=== PATIENT | male | born 1955 | race Caucasian/White ===

== ENCOUNTER → 2016-03-06 | Outpatient (REF) | payer BC ==
[~2016-03-06] MED LIST: /SUCR1TA OR; ACET65TA OR; BABY81CH OR; BACTROBAN TOP; BENZACLIN TOP; ELOCON TOP; PRAV80TA OR; PRIL40CA OR
[2016-03-06 16:25] LABS: ALBUMIN 3.9 GM/DL (3.2-5.2); ALBUMIN/GLOBULIN RATIO 1.44 (1.00-1.93); ALKALINE PHOSPHATASE 99 U/L (45-117); ALT/SGPT 34 U/L (12-78); ANION GAP 7 MEQ/L (8-16); AST/SGOT 19 U/L (15-37); BILIRUBIN,TOTAL 0.8 MG/DL (0.2-1.0); BLOOD UREA NITROGEN 13 MG/DL (7-18); CALCIUM LEVEL 8.8 MG/DL (8.5-10.1); CARBON DIOXIDE LEVEL 31 MEQ/L (21-32); CHLORIDE LEVEL 107 MEQ/L (98-107); CREATININE FOR GFR 0.76 MG/DL (0.70-1.30); GLOMERULAR FILTRATION RATE > 60.0 (>56); GLUCOSE, FASTING 82 MG/DL (70-105); POTASSIUM SERUM 3.9 MEQ/L (3.5-5.1); SODIUM LEVEL 145 MEQ/L (136-145); TOTAL PROTEIN 6.6 GM/DL (6.4-8.2)
== END | disposition home or self-care (01) ==
LOC: M SFHCPLAZ 13:58
PROVIDERS: ATTEND Nurse Practitioner Family
DX: R73.01 Impaired fasting glucose (principal)

== ENCOUNTER → 2016-07-31 | Outpatient (CLI) | payer BC ==
[2016-07-31 16:49] LABS: ALBUMIN 3.7 GM/DL (3.2-5.2); ALBUMIN/GLOBULIN RATIO 1.37 (1.00-1.93); ALKALINE PHOSPHATASE 81 U/L (45-117); ALT/SGPT 24 U/L (12-78); ANION GAP 6 MEQ/L (8-16); AST/SGOT 14 U/L (15-37); BILIRUBIN,TOTAL 0.9 MG/DL (0.2-1.0); BLOOD UREA NITROGEN 12 MG/DL (7-18); CARBON DIOXIDE LEVEL 29 MEQ/L (21-32); CHLORIDE LEVEL 106 MEQ/L (98-107); CHOLESTEROL LEVEL 136 MG/DL (<200); CREATININE FOR GFR 0.76 MG/DL (0.70-1.30); FREE T4 1.07 NG/DL (0.76-1.46); GLOMERULAR FILTRATION RATE > 60.0 (>49); GLUCOSE, FASTING 76 MG/DL (80-110); POTASSIUM SERUM 3.7 MEQ/L (3.5-5.1); SODIUM LEVEL 141 MEQ/L (136-145); TOTAL PROTEIN 6.4 GM/DL (6.4-8.2); TRIGLYCERIDES LEVEL 83 MG/DL (<150)
== END ==
LOC: M LAB 15:36
PROVIDERS: ATTEND Nurse Practitioner Family
DX: R73.01 Impaired fasting glucose (principal); E78.5 Hyperlipidemia, unspecified

== ENCOUNTER → 2017-02-25 | Outpatient (REF) | payer BC ==
[2017-02-25 19:04] LABS: ALBUMIN 3.8 GM/DL (3.2-5.2); ALBUMIN/GLOBULIN RATIO 1.23 (1.00-1.93); ALKALINE PHOSPHATASE 88 U/L (45-117); ALT/SGPT 19 U/L (12-78); ANION GAP 7 MEQ/L (8-16); AST/SGOT 14 U/L (7-37); BILIRUBIN,TOTAL 0.5 MG/DL (0.2-1.0); BLOOD UREA NITROGEN 14 MG/DL (7-18); CALCIUM LEVEL 8.7 MG/DL (8.8-10.2); CARBON DIOXIDE LEVEL 29 MEQ/L (21-32); CHLORIDE LEVEL 106 MEQ/L (98-107); CHOLESTEROL LEVEL 241 MG/DL (<200); CHOLESTEROL RISK RATIO 5.878 (<5); CREATININE FOR GFR 0.71 MG/DL (0.70-1.30); FREE T4 1.03 NG/DL (0.76-1.46); GLOMERULAR FILTRATION RATE > 60.0 (>49); GLUCOSE, FASTING 80 MG/DL (80-110); HDL CHOLESTEROL 41 MG/DL (>40); LDL CHOLESTEROL 171.2 MG/DL (<100); NON-HDL-C 200 MG/DL; SODIUM LEVEL 142 MEQ/L (136-145); THYROID STIMULATING HORMONE 0.467 uIU/ML (0.358-3.740); TOTAL PROTEIN 6.9 GM/DL (6.4-8.2); TRIGLYCERIDES LEVEL 144 MG/DL (<150)
[2017-02-25 19:29] LABS: ESTIMATED AVERAGE GLUCOSE 134 MG/DL (60-110); HEMOGLOBIN A1c 6.3 %
== END ==
LOC: M SFHCPLAZ 15:50
DX: E78.5 Hyperlipidemia, unspecified (principal); R73.01 Impaired fasting glucose
CPT/HCPCS: 84443

== ENCOUNTER → 2017-08-16 | Outpatient (CLI) | payer BC | LOC: M RAD 10:50 | DX: L02.214 Cutaneous abscess of groin (principal) | CPT/HCPCS: 76870 ==

== ENCOUNTER → 2017-08-28 | Outpatient (CLI) | payer BC ==
[2017-08-28 12:52] LABS: BASO # 0.1 10^3/uL (0.0-0.2); BASO % 0.5 % (0.0-1.0); EOS # 0.3 10^3/uL (0.0-0.50); EOS % 2.3 % (0.0-3.0); HEMATOCRIT 46.1 % (42.0-52.0); HEMOGLOBIN 15.1 g/dl (13.5-17.5); IMMATURE GRANULOCYTE % 0.7 % (0-3.0); LYMPH # 1.8 10^3/uL (1.5-4.5); LYMPH % 12.6 % (24.0-44.0); MEAN CORPUSCULAR HEMOGLOBIN 28.6 pg (27.0-33.0); MEAN CORPUSCULAR HGB CONC 32.8 g/dl (32.0-36.5); MEAN CORPUSCULAR VOLUME 87.3 fl (80.0-96.0); MONO # 1.5 10^3/uL (0.0-0.8); MONO % 10.6 % (0.0-5.0); NEUTROPHILS # 10.2 10^3/uL (1.8-7.7); NEUTROPHILS % 73.3 % (36.0-66.0); PLATELET COUNT, AUTOMATED 242 10^3/uL (150-450); RED BLOOD COUNT 5.28 10^6/uL (4.30-6.10); RED CELL DISTRIBUTION WIDTH 12.5 % (11.5-14.5); WHITE BLOOD COUNT 13.9 10^3/uL (4.0-10.0)
== END ==
LOC: M WUC 10:04
DX: L02.214 Cutaneous abscess of groin (principal)
CPT/HCPCS: 85025

== ENCOUNTER → 2017-09-16 | Outpatient (REF) | payer BC ==
[2017-09-16 13:54] LABS: ESTIMATED AVERAGE GLUCOSE 146 MG/DL (60-110); HEMOGLOBIN A1c 6.7 %
[2017-09-16 14:25] LABS: ALBUMIN 3.8 GM/DL (3.2-5.2); ALBUMIN/GLOBULIN RATIO 1.23 (1.00-1.93); ALKALINE PHOSPHATASE 98 U/L (45-117); ALT/SGPT 31 U/L (12-78); ANION GAP 6 MEQ/L (8-16); AST/SGOT 15 U/L (7-37); BILIRUBIN,TOTAL 0.4 MG/DL (0.2-1.0); BLOOD UREA NITROGEN 13 MG/DL (7-18); CALCIUM LEVEL 8.9 MG/DL (8.8-10.2); CARBON DIOXIDE LEVEL 30 MEQ/L (21-32); CHLORIDE LEVEL 108 MEQ/L (98-107); CHOLESTEROL LEVEL 146 MG/DL (<200); CHOLESTEROL RISK RATIO 3.395 (<5); CREATININE FOR GFR 0.78 MG/DL (0.70-1.30); GLOMERULAR FILTRATION RATE > 60.0 (>49); GLUCOSE, FASTING 97 MG/DL (70-100); HDL CHOLESTEROL 43 MG/DL (>40); LDL CHOLESTEROL 91.2 MG/DL (<100); NON-HDL-C 103 MG/DL; POTASSIUM SERUM 4.2 MEQ/L (3.5-5.1); SODIUM LEVEL 144 MEQ/L (136-145); TOTAL PROTEIN 6.9 GM/DL (6.4-8.2); TRIGLYCERIDES LEVEL 59 MG/DL (<150)
== END ==
LOC: M SFHCPLAZ 11:09
DX: E78.5 Hyperlipidemia, unspecified (principal); R73.01 Impaired fasting glucose
CPT/HCPCS: 80053

== ENCOUNTER → 2017-11-04 | Outpatient (REF) | payer BC | LOC: M SMT 17:23 | DX: N49.2 Inflammatory disorders of scrotum (principal) | CPT/HCPCS: 87186 ==

== ENCOUNTER → 2018-04-20 | Outpatient (REF) | payer OTHER | LOC: M SFHCPLAZ 15:56 | PROVIDERS: ATTEND Nurse Practitioner Family | DX: Z53.9 Procedure and treatment not carried out, unspecified reason (principal); R73.01 Impaired fasting glucose; E78.5 Hyperlipidemia, unspecified ==

== ENCOUNTER → 2018-04-21 | Outpatient (REF) | payer OTHER ==
[2018-04-21 18:54] LABS: HEMOGLOBIN A1c 6.7 %
[2018-04-21 19:11] LABS: MALB URINE SIEMENS 25.9 MG/L; MAU/CREAT RATIO 16.9 MCG/MG (0.0-30.0)
[2018-04-21 19:15] LABS: ALBUMIN 3.8 GM/DL (3.2-5.2); ALT/SGPT 26 U/L (12-78); BILIRUBIN,TOTAL 0.6 MG/DL (0.2-1.0); BLOOD UREA NITROGEN 14 MG/DL (7-18); CALCIUM LEVEL 8.8 MG/DL (8.8-10.2); CARBON DIOXIDE LEVEL 28 MEQ/L (21-32); CHLORIDE LEVEL 104 MEQ/L (98-107); CREATININE FOR GFR 0.82 MG/DL (0.70-1.30); GLOMERULAR FILTRATION RATE > 60.0 (>49); GLUCOSE, FASTING 82 MG/DL (70-100); POTASSIUM SERUM 4.1 MEQ/L (3.5-5.1); SODIUM LEVEL 140 MEQ/L (136-145); TOTAL PROTEIN 6.9 GM/DL (6.4-8.2)
== END ==
LOC: M SFHCPLAZ 15:20
PROVIDERS: ATTEND Nurse Practitioner Family
DX: E11.69 Type 2 diabetes mellitus with other specified complication (principal); E78.5 Hyperlipidemia, unspecified

== ENCOUNTER → 2018-07-28 | Outpatient (REF) | payer OTHER ==
[~2018-07-28] MED LIST changes: -/SUCR1TA OR; +SUCR1TAB56 OR
[2018-07-28 18:09] LABS: ALBUMIN 3.4 GM/DL (3.2-5.2); ALT/SGPT 28 U/L (12-78); BILIRUBIN,TOTAL 0.3 MG/DL (0.2-1.0); BLOOD UREA NITROGEN 13 MG/DL (7-18); CALCIUM LEVEL 8.6 MG/DL (8.8-10.2); CARBON DIOXIDE LEVEL 29 MEQ/L (21-32); CHLORIDE LEVEL 108 MEQ/L (98-107); CHOLESTEROL LEVEL 141 MG/DL (<200); CHOLESTEROL RISK RATIO 3.525 (<5); CREATININE FOR GFR 0.77 MG/DL (0.70-1.30); GLOMERULAR FILTRATION RATE > 60.0 (>49); GLUCOSE, FASTING 80 MG/DL (70-100); HDL CHOLESTEROL 40 MG/DL (>40); LDL CHOLESTEROL 83 MG/DL (<100); NON-HDL-C 101 MG/DL; POTASSIUM SERUM 4.2 MEQ/L (3.5-5.1); SODIUM LEVEL 144 MEQ/L (136-145); TOTAL PROTEIN 6.7 GM/DL (6.4-8.2); TRIGLYCERIDES LEVEL 92 MG/DL (<150)
[2018-07-28 18:27] LABS: HEMOGLOBIN A1c 6.9 %
== END ==
LOC: M SFHCPLAZ 15:05
PROVIDERS: ATTEND Nurse Practitioner Family
DX: E11.69 Type 2 diabetes mellitus with other specified complication (principal); E78.5 Hyperlipidemia, unspecified

== ENCOUNTER → 2018-08-24 | Outpatient (CLI) | payer OTHER ==
--- NOTE | 2018-08-24 17:04 | REP ---
Clinical: Lung screening. History smoking. Comparison: None Technique: Axial low-dose noncontrast images from the thoracic inlet to the upper abdomen using lung screening technique. Findings: Left hilar mass extending into the left upper lobe measures 5 cm with spiculated margins and is consistent with malignancy. Impression: Left hilar mass is consistent with malignancy and pulmonary consultation is required. Electronically Signed by Prasanna Armendariz MD 08/24/2018 04:56 P
== END ==
LOC: M RAD 16:11
PROVIDERS: ATTEND Nurse Practitioner Family
DX: F17.210 Nicotine dependence, cigarettes, uncomplicated (principal)

== ENCOUNTER 2018-10-05 07:25 | Day surgery (SDC) | payer OTHER ==
[~2018-10-05] VITALS: Ht 170.2 cm; Wt 124.3 kg
[~2018-10-05 07:25] MED LIST changes: +ASPI81TA85 PO; +ATOR40TA75 PO; +LISI10TA4 PO; +LR 1,000 ML IV ONE; +METF500T13 PO; +MULTCAP PO; +NEXI20CA PO; +OMEGCAP9 PO; +PROAAER10 INH; +STRI1AER2 IN
[2018-10-05] MEDS ORDERED: ROCURONIUM BROMIDE 50 MG/5 ML VIAL As Ordered ONE (08:32)
[2018-10-05] MEDS ORDERED: PROPOFOL 200 MG/20 ML VIAL As Ordered ONE (08:32)
[2018-10-05] MEDS ORDERED: fentaNYL 100 MCG/2 ML INJECTION (J3010) As Ordered ONE (08:33)
[2018-10-05] MEDS ORDERED: LIDOCAINE 2% INJ 100 MG/5 ML SDV (FOR ANES.) As Ordered ONE (08:33)
[2018-10-05] MEDS ORDERED: dexameTHASONE 4 MG/ML 1ML VIAL (J1100) As Ordered ONE (08:37)
[2018-10-05] MEDS ORDERED: LIDOCAINE 1% SDV INJ 30 ML VIAL As Ordered ONE (08:37)
[2018-10-05] MEDS ORDERED: CETACAINE SPRAY 5GM As Ordered ONE (08:37)
[2018-10-05] MEDS ORDERED: ONDANSETRON 4MG/2ML VIAL (J2405) As Ordered ONE (08:37)
[2018-10-05] MEDS ORDERED: THROMBIN SOLN 5,000 UNITS VIAL As Ordered ONE (08:37)
[2018-10-05] MEDS ORDERED: EPINEPHrine INJ 1 MG/ML 1ML AMP As Ordered ONE (08:38)
[2018-10-05] MEDS ORDERED: LIDOCAINE VISCOUS 2% SOLN 15ML UDC As Ordered ONE (08:38)
[2018-10-05] MEDS ORDERED: EPINEPHrine 1MG/10ML SYRINGE 1.5IN As Ordered ONE (08:43)
[2018-10-05] MEDS ORDERED: ALBUTEROL SULFATE 2.5 MG/0.5 ML INH NEB SOLN As Ordered ONE (10:14)
[2018-10-05] MEDS ORDERED: PROMETHAZINE INJ 25 MG/ML VIAL (J2550) IV PRN (10:15)
[2018-10-05] MEDS ORDERED: LR 1,000 ML IV SCH (10:15)
[2018-10-05] MEDS ORDERED: oxyCODONE 5MG TAB PO PRN (10:15)
[2018-10-05] MEDS ORDERED: METOCLOPRAMIDE INJ 10MG/2ML VIAL (J2765) IV PRN (10:15)
[2018-10-05] MEDS ORDERED: fentaNYL 100 MCG/2 ML INJECTION (J3010) IV PRN (10:15)
--- NOTE | 2018-10-05 10:26 | RO ---
DATE OF PROCEDURE: 10/05/2018 PREOPERATIVE DIAGNOSIS: Abnormal chest CT, left upper lobe lesion. POSTOPERATIVE DIAGNOSIS: Abnormal chest CT, left upper lobe lesion. PROCEDURE: Bronchoscopy with endobronchial ultrasound. SURGEON: Dr. Eddie Mcdaniels PICKLE SORTER: None. ANESTHESIA: General. SPECIMENS OBTAINED: 1. Transbronchial biopsies left upper lobe. 2. Transbronchial Cytobrush. 3. Fine needle aspiration (FNA) of the left upper lobe, Percepta brushes were also obtained. DESCRIPTION OF PROCEDURE: After informed consent was reviewed with the patient in the preoperative area, he was brought back to OR number one. He was intubated with an 8.5 endotracheal tube and after adequate anesthesia the case was handed over to dc. A time out was performed with two patient identifiers, identifying correct site and correct procedure. The airway was then anesthetized with Cetacaine spray and the 1T-190 bronchoscope was inserted into the trachea. The trachea was midline. The joanna was sharp. Right and left mainstem bronchi were normal. RB 1-10 was without endobronchial lesions, but minimal pitting. The left mainstem was normal. LB 1 was normal. The posterior segment of the left upper lobe was narrowed. The anterior segment was patent. The left upper lobe had a normal anatomic variation similar to that of a usual right upper lobe. The lingula superior and inferior segments were normal without endobronchial lesions, but minimal banding. LB 6-10 were normal without endobronchial lesions, minimal banding. After inspection, the bronchoscope was retracted. Percepta brushes were obtained from the right mainstem on the anterior and posterior surfaces of the airway. There was no significant bleeding from the Percepta brushes. The bronchoscope was then inserted into the left upper lobe and lesion identified under fluoroscopy. The airways of the lingula and the left upper lobe were viewed. The lesion appears to be between the lingula and the left upper lobe. The posterior segment, however, of the left upper lobe was the most accurate under fluoroscopy. Transbronchial forceps biopsies were then taken with some minimal amount of hemorrhage and hemorrhage resolved on its own without administration of epinephrine. Then, performed cytology brushes of the left upper lobe. This was followed by an FNA of the spur between the anterior and posterior segment. Prior to the FNA, endobronchial ultrasound was attempted of the area, however, the endobronchial ultrasound was not able to be advanced far enough into the left upper lobe for accurate vision. There was no significant adenopathy proximal to that. The endobronchial ultrasound was removed and the 1T-190 scope was reinserted. Hemostasis was assured. The bronchoscope was then removed and the patient was extubated. The patient is currently in recovery. Chest x-ray is pending. [facility]
[2018-10-05] MEDS ORDERED: ALBUTEROL SULFATE 2.5 MG/0.5 ML INH NEB SOLN INH ONE (10:30)
[2018-10-05 11:00] VITALS: BP 135/83
--- NOTE | 2018-10-05 11:09 | REP ---
REASON: Postoperative. COMPARISON: 02/13/2015 the latest prior. There is a mass density in the left perihilar region seen better on chest CT obtained 08/24/2018 which was reviewed. With this exception the lung butler are clear and the pleural angles are sharp. The heart is not enlarged. The osseous structures are within normal limits. IMPRESSION: Left perihilar mass as described above. Electronically Signed by Logan Martinez DO 10/05/2018 12:32 P
== END 2018-10-05 11:28 | disposition home or self-care (01) ==
LOC: M SDC 07:25
PROVIDERS: ATTEND Internal Medicine Pulmonary Disease
DX: C34.12 Malignant neoplasm of upper lobe, left bronchus or lung (principal); J44.9 Chronic obstructive pulmonary disease, unspecified; I10 Essential (primary) hypertension; R73.03 Prediabetes; K21.9 Gastro-esophageal reflux disease without esophagitis; G47.33 Obstructive sleep apnea (adult) (pediatric); E78.00 Pure hypercholesterolemia, unspecified; K86.1 Other chronic pancreatitis; F17.210 Nicotine dependence, cigarettes, uncomplicated; Z79.899 Other long term (current) drug therapy; Z79.84 Long term (current) use of oral hypoglycemic drugs; N40.0 Benign prostatic hyperplasia without lower urinary tract symptoms
CPT/HCPCS: 31623; 31628; 31629; 71045; 76000; 88104; 88173; 88305; 88313; 88341; 88342; J1100; J2405; J3010

== ENCOUNTER 2018-10-10 00:24 | Emergency (ER) | payer OTHER ==
[~2018-10-10] VITALS: Ht 170.2 cm; Wt 124.5 kg
[~2018-10-10 00:24] MED LIST changes: -LR 1,000 ML IV ONE
[2018-10-10 01:36] LABS: BASO # 0.1 10^3/uL (0.0-0.2); BASO % 0.7 % (0.0-1.0); EOS # 0.3 10^3/uL (0.0-0.50); EOS % 2.9 % (0.0-3.0); HEMATOCRIT 46.4 % (42.0-52.0); HEMOGLOBIN 15.7 g/dl (13.5-17.5); LYMPH # 1.5 10^3/uL (1.5-4.5); LYMPH % 13.4 % (24.0-44.0); MEAN CORPUSCULAR HEMOGLOBIN 28.9 pg (27.0-33.0); MEAN CORPUSCULAR HGB CONC 33.8 g/dl (32.0-36.5); MEAN CORPUSCULAR VOLUME 85.5 fl (80.0-96.0); MONO # 1.2 10^3/uL (0.0-0.8); NEUTROPHILS # 7.8 10^3/uL (1.8-7.7); NEUTROPHILS % 71.4 % (36.0-66.0); PLATELET COUNT, AUTOMATED 235 10^3/uL (150-450); RED BLOOD COUNT 5.43 10^6/uL (4.30-6.10); WHITE BLOOD COUNT 10.9 10^3/uL (4.0-10.0)
[2018-10-10 02:03] LABS: ALBUMIN 3.8 GM/DL (3.2-5.2); ALT/SGPT 24 U/L (12-78); BILIRUBIN,DIRECT 0.3 MG/DL (0.0-0.2); BLOOD UREA NITROGEN 9 MG/DL (7-18); CALCIUM LEVEL 9.4 MG/DL (8.8-10.2); CARBON DIOXIDE LEVEL 29 MEQ/L (21-32); CHLORIDE LEVEL 105 MEQ/L (98-107); CREATININE FOR GFR 0.87 MG/DL (0.70-1.30); GLOMERULAR FILTRATION RATE > 60.0 (>49); GLUCOSE, FASTING 106 MG/DL (70-100); LIPASE 581 U/L (73-393); POTASSIUM SERUM 3.3 MEQ/L (3.5-5.1); SODIUM LEVEL 142 MEQ/L (136-145); TOTAL PROTEIN 7.1 GM/DL (6.4-8.2)
[2018-10-10] MEDS ORDERED: NS 1,000 ML IV ONE (03:30)
[2018-10-10] MEDS ORDERED: ONDANSETRON 4MG/2ML VIAL (J2405) IV ONE (03:30)
[2018-10-10] MEDS ORDERED: MORPHINE 4 MG/ML 1ML VIAL/SYRINGE (J2270) IV PRN (03:30)
[2018-10-10] MEDS ORDERED: ISOVUE-370 76% 100ML VIAL (Q9967) As Ordered ONE (03:38)
--- NOTE | 2018-10-10 06:22 | REPVR ---
EXAM: CT Abdomen and Pelvis With Contrast EXAM DATE/TIME: 10/10/2018 3:57 AM CLINICAL HISTORY: 63 years old, male; Abdominal pain; Epigastric; Additional info: Epigastric pain, HX of pancreatitis TECHNIQUE: Imaging protocol: Axial computed tomography images of the abdomen and pelvis with intravenous contrast. Coronal and sagittal reformatted images were created and reviewed. Radiation optimization: All CT scans at this facility use at least one of these dose optimization techniques: automated exposure control; mA and/or kV adjustment per patient size (includes targeted exams where dose is matched to clinical indication); or iterative reconstruction. Contrast material: ISOVUE 370;Contrast volume: 100 ml;Contrast route: IV; COMPARISON: CT ABD PELVIS WITH CONTRAST 10/23/2013 2:56 AM FINDINGS: Lungs: Mild bibasilar atelectasis. No consolidation. Right lower lobe calcified granuloma. Heart: Cardiac size is normal. No pericardial or pleural effusions. Liver: Diffuse fatty infiltration of the liver. There are few punctate calcified granulomas which appear unchanged. Gallbladder and bile ducts: No calcified gallstones. Mild prominence of the extrahepatic bile ducts with the common bile duct measuring up to 1 cm. No calcified intraductal stones. Pancreas: There is homogeneous enhancement of the pancreas. No pancreatic duct dilatation. Subtle perigastric hazy density adjacent to the distal stomach which extends inferiorly, adjacent to the pancreatic neck and into the root of the mesentery. Spleen: The spleen is unremarkable in appearance. Adrenals: The adrenal glands are unremarkable. No mass. Kidneys and ureters: Symmetric nephrograms. No hydronephrosis. Stomach and bowel: The stomach is relatively decompressed. There is no evidence of bowel obstruction. Colonic diverticulosis. No acute diverticulitis. Appendix: Normal appendix. Intraperitoneal space: No free fluid. No free air. Vasculature: Atherosclerosis. No abdominal aortic aneurysm. Lymph nodes: No significant adenopathy. Bladder: Partially distended urinary bladder. Reproductive: Stable mild enlargement of the prostate gland. Bones/joints: Degenerative change within the lower thoracic and lumbar spine. No acute fracture. Soft tissues: Small fat-containing paraumbilical hernia. Small fat-containing inguinal hernias. IMPRESSION: 1. Subtle perigastric hazy density adjacent to the distal stomach which extends inferiorly, adjacent to the pancreatic neck and into the root of the mesentery. Differential considerations include gastritis/peptic ulcer disease or mild pancreatitis. Recommend correlation with pancreatic enzymes. 2. Mild prominence of the extrahepatic bile ducts with the common bile duct measuring up to 1 cm. No calcified gallstones or intraductal stones. Consider ultrasound for further evaluation if clinically warranted. 3. Colonic diverticulosis. No acute diverticulitis. 4. Diffuse fatty infiltration of the liver. 5. Additional non-emergent findings, as discussed above. Findings were discussed with TISHA QUINTEROS at 10/10/2018 6:06 AM EDT. Electronically signed by: Prasanna Medrano On 10/10/2018 06:22:34 AM
[2018-10-10] MEDS ORDERED: POTASSIUM CHLORIDE 10 MEQ SR TABLET PO ONE (08:00)
--- NOTE | 2018-10-10 08:18 | REPVR ---
EXAM: US Abdomen Limited, Right Upper Quadrant EXAM DATE/TIME: 10/10/2018 7:35 AM CLINICAL HISTORY: 63 years old, male; Abdominal pain; Additional info: Epigastric pain, pancreatitis, biliary dilatation on CT TECHNIQUE: Imaging protocol: Real-time ultrasound of the abdomen with image documentation. Examination was focused on the right upper quadrant. COMPARISON: CT ABD/PEL W/IV CONTRAST ONLY 10/10/2018 3:47 AM FINDINGS: Liver: The liver is diffusely echogenic, consistent with fatty infiltration. No intrahepatic biliary duct dilatation. Gallbladder: The gallbladder is unremarkable. No gallstones or gallbladder wall thickening. Common bile duct: There is mild prominence of the extrahepatic bile ducts with the common bile duct measuring 9 mm. No intraductal stones are visualized. Pancreas: The pancreas is partially obscured by overlying bowel gas. The visualized portions of the pancreatic head and body are unremarkable. Right kidney: The right kidney measures 11.5 cm in length. No hydronephrosis. Inferior vena cava: The visualized IVC is unremarkable Intraperitoneal space: No evidence of free fluid. IMPRESSION: 1. Echogenic liver, consistent with diffuse fatty infiltration. 2. No evidence of gallstones. 3. Mild prominence of the extrahepatic bile ducts, as noted on CT. The common bile duct measures 9 mm. No intraductal stones are visualized. Electronically signed by: Prasanna Medrano On 10/10/2018 08:17:32 AM
[2018-10-10] MEDS ORDERED: ZOFR4TAB16 PO (08:40)
[2018-10-10 09:00] VITALS: BP 141/69
--- NOTE | 2018-10-10 16:41 | ED PDOC ---
Post-Departure Follow-Up dr bob and dr wray faxed formal report of ct abd/p for fu Brittani Stevenson MD Oct 10, 2018 16:40
--- NOTE | 2018-10-10 16:47 | ED PDOC ---
Post-Departure Follow-Up dr bob and dr wray faxed formal report of us for fu Brittani Stevenson MD Oct 10, 2018 16:47
== END 2018-10-10 09:02 | disposition home or self-care (01) ==
LOC: M ED 00:24
DX: R10.13 Epigastric pain (principal); E78.5 Hyperlipidemia, unspecified; F17.210 Nicotine dependence, cigarettes, uncomplicated; I10 Essential (primary) hypertension; K21.9 Gastro-esophageal reflux disease without esophagitis; K40.90 Unilateral inguinal hernia, without obstruction or gangrene, not specified as recurrent; K42.9 Umbilical hernia without obstruction or gangrene; K57.31 Diverticulosis of large intestine without perforation or abscess with bleeding; K76.0 Fatty (change of) liver, not elsewhere classified; M51.35 Other intervertebral disc degeneration, thoracolumbar region; Z79.51 Long term (current) use of inhaled steroids; Z79.82 Long term (current) use of aspirin; Z79.84 Long term (current) use of oral hypoglycemic drugs; Z79.899 Other long term (current) drug therapy; Z91.018 Allergy to other foods; Z91.048 Other nonmedicinal substance allergy status
CPT/HCPCS: 74177; 76705; 80048; 80076; 81001; 83690; 85025; 96361; 96374; 96375; 99284; J2270; J2405; Q9967

== ENCOUNTER → 2018-10-13 | Outpatient (REF) | payer OTHER ==
[~2018-10-13] MED LIST changes: +CLAR10CA3 PO; +FULP6INJ SC; +OLAN10TA2 PO; +ONDA4TAB6 PO; +ONDA8TAB10 PO; +PERC5TAB12 PO; +PROC10TA4 PO; +SILV40CR EXT; +ZOFR4TAB16 PO
[2018-10-13 16:28] LABS: BASO # 0.1 10^3/uL (0.0-0.2); BASO % 0.7 % (0.0-1.0); EOS # 0.3 10^3/uL (0.0-0.50); EOS % 3.3 % (0.0-3.0); HEMATOCRIT 48.2 % (42.0-52.0); HEMOGLOBIN 16.4 g/dl (13.5-17.5); LYMPH # 1.8 10^3/uL (1.5-4.5); LYMPH % 19.7 % (24.0-44.0); MEAN CORPUSCULAR HEMOGLOBIN 29.2 pg (27.0-33.0); MEAN CORPUSCULAR VOLUME 85.8 fl (80.0-96.0); MONO # 1.1 10^3/uL (0.0-0.8); NEUTROPHILS # 5.9 10^3/uL (1.8-7.7); NEUTROPHILS % 63.3 % (36.0-66.0); PLATELET COUNT, AUTOMATED 263 10^3/uL (150-450); RED BLOOD COUNT 5.62 10^6/uL (4.30-6.10); WHITE BLOOD COUNT 9.4 10^3/uL (4.0-10.0)
[2018-10-13 16:44] LABS: BLOOD UREA NITROGEN 10 MG/DL (7-18); CALCIUM LEVEL 9.5 MG/DL (8.8-10.2); CARBON DIOXIDE LEVEL 26 MEQ/L (21-32); CHLORIDE LEVEL 106 MEQ/L (98-107); CREATININE FOR GFR 0.79 MG/DL (0.70-1.30); GLOMERULAR FILTRATION RATE > 60.0 (>49); GLUCOSE, FASTING 94 MG/DL (70-100); LIPASE 222 U/L (73-393); POTASSIUM SERUM 3.6 MEQ/L (3.5-5.1); SODIUM LEVEL 142 MEQ/L (136-145)
== END ==
LOC: M SFHCPLAZ 14:11
PROVIDERS: ATTEND Family Medicine
DX: D72.829 Elevated white blood cell count, unspecified (principal); K85.90 Acute pancreatitis without necrosis or infection, unspecified; E87.6 Hypokalemia

== ENCOUNTER 2018-10-18 00:13 | Emergency (ER) | payer OTHER ==
[~2018-10-18] VITALS: Ht 170.2 cm; Wt 120.9 kg
[~2018-10-18 00:13] MED LIST changes: -CLAR10CA3 PO; -FULP6INJ SC; -OLAN10TA2 PO; -ONDA4TAB6 PO; -ONDA8TAB10 PO; -PERC5TAB12 PO; -PROC10TA4 PO; -SILV40CR EXT
[2018-10-18 00:41] LABS: BASO # 0.1 10^3/uL (0.0-0.2); BASO % 0.8 % (0.0-1.0); EOS # 0.3 10^3/uL (0.0-0.50); EOS % 2.9 % (0.0-3.0); HEMOGLOBIN 16.6 g/dl (13.5-17.5); LYMPH # 1.7 10^3/uL (1.5-4.5); LYMPH % 15.6 % (24.0-44.0); MEAN CORPUSCULAR HGB CONC 33.9 g/dl (32.0-36.5); MEAN CORPUSCULAR VOLUME 85.7 fl (80.0-96.0); MONO # 1.1 10^3/uL (0.0-0.8); MONO % 10.1 % (0.0-5.0); NEUTROPHILS # 7.6 10^3/uL (1.8-7.7); PLATELET COUNT, AUTOMATED 268 10^3/uL (150-450); RED BLOOD COUNT 5.72 10^6/uL (4.30-6.10); WHITE BLOOD COUNT 10.9 10^3/uL (4.0-10.0)
[2018-10-18 00:57] LABS: ALBUMIN 3.8 GM/DL (3.2-5.2); ALT/SGPT 24 U/L (12-78); BILIRUBIN,DIRECT 0.2 MG/DL (0.0-0.2); BILIRUBIN,TOTAL 0.6 MG/DL (0.2-1.0); BLOOD UREA NITROGEN 11 MG/DL (7-18); CALCIUM LEVEL 9.3 MG/DL (8.8-10.2); CARBON DIOXIDE LEVEL 29 MEQ/L (21-32); CHLORIDE LEVEL 108 MEQ/L (98-107); CREATININE FOR GFR 0.82 MG/DL (0.70-1.30); GLOMERULAR FILTRATION RATE > 60.0 (>49); GLUCOSE, FASTING 120 MG/DL (70-100); LIPASE 434 U/L (73-393); POTASSIUM SERUM 3.6 MEQ/L (3.5-5.1); SODIUM LEVEL 142 MEQ/L (136-145)
[2018-10-18] MEDS ORDERED: ONDANSETRON 4MG/2ML VIAL (J2405) IV ONE (03:15)
[2018-10-18] MEDS ORDERED: MORPHINE 4 MG/ML 1ML VIAL/SYRINGE (J2270) IV PRN (03:15)
[2018-10-18] MEDS ORDERED: NS 1,000 ML IV ONE (03:15)
[2018-10-18] MEDS ORDERED: ONDA4TAB6 PO (05:35)
[2018-10-18] MEDS ORDERED: PERC5TAB12 PO (05:35)
[2018-10-18] MEDS ORDERED: OXYCODONE/APAP 5MG/325MG(BULK FOR ED) 1 TABLET PO ONE (05:45)
[2018-10-18 05:49] VITALS: BP 126/60
== END 2018-10-18 05:50 | disposition home or self-care (01) ==
LOC: M ED 00:13
DX: K85.00 Idiopathic acute pancreatitis without necrosis or infection (principal); I10 Essential (primary) hypertension; E78.5 Hyperlipidemia, unspecified; K21.9 Gastro-esophageal reflux disease without esophagitis; F17.210 Nicotine dependence, cigarettes, uncomplicated; Z91.018 Allergy to other foods; Z91.048 Other nonmedicinal substance allergy status; Z79.899 Other long term (current) drug therapy; Z79.84 Long term (current) use of oral hypoglycemic drugs; Z79.82 Long term (current) use of aspirin
CPT/HCPCS: 80048; 80076; 83690; 85025; 96361; 96374; 96375; 99284; J2270; J2405

== ENCOUNTER → 2018-10-25 | Outpatient (CLI) | payer OTHER ==
[~2018-10-25] MED LIST changes: +FULP6INJ SC; +OLAN10TA2 PO; +ONDA4TAB6 PO; +ONDA8TAB7 PO; +PERC5TAB12 PO; +PROC10TA4 PO
--- NOTE | 2018-10-26 08:55 | REP ---
PET/CT: History: Staging small cell lung carcinoma. Comparisons: Low-dose chest CT August 24, 2018. Comparison CT abdomen and pelvis October 10, 2018. TECHNIQUE: 52 minutes following the intravenous injection of a 8.41 mCi dose of F-18 FDG, three-dimensional PET scintigraphy is acquired from the skull base to the proximal thighs. Triplanar noncontrast CT scanning is acquired through the same anatomic range for attenuation correction, and image registration with scan parameters optimized to minimize radiation exposure to the patient. PET scintigraphy and CT datasets were fused and displayed on a workstation with multiplanar and projection display capability. PET/CT Findings: The left upper lobe perihilar mass lesion is quite hypermetabolic. Maximum standard uptake value is 16.73. Its dimensions are 4.9 x 4.6 x 4.7 cm. No other abnormal pulmonary parenchymal hypermetabolic uptake is seen. No abnormal hilar or mediastinal hypermetabolic uptake is observed. Head and neck soft tissues are unremarkable. No abnormal adrenal uptake is seen. No abnormal uptake is noted in the abdomen or pelvis. No abnormal skeletal hypermetabolic uptake is seen. Impression: Hypermetabolic uptake is noted in the known left upper lobe perihilar mass as above. No other abnormal hypermetabolic uptake is appreciated. Electronically Signed by Sanjay Ma MD 10/26/2018 12:10 P
== END ==
LOC: M PLARAD 14:26
PROVIDERS: ATTEND Internal Medicine Pulmonary Disease
DX: C34.12 Malignant neoplasm of upper lobe, left bronchus or lung (principal)
CPT/HCPCS: 78815; A9552

== ENCOUNTER → 2018-11-04 | Outpatient (CLI) | payer OTHER ==
[~2018-11-04] MED LIST changes: -FULP6INJ SC; -OLAN10TA2 PO; -ONDA8TAB7 PO; -PROC10TA4 PO; +PROHANCE 279.3MG/ML 15ML VIAL (A9576) As Ordered ONE; +PROHANCE 279.3MG/ML 5ML VIAL (A9576) As Ordered ONE
--- NOTE | 2018-11-04 17:15 | REP ---
MRI brain without and with IV gadolinium: History: Staging for small cell lung carcinoma. Comparison study: April 16, 2011. Technique: Axial and sagittal imaging planes are utilized for T1 and T2-weighted scans. Sequences include spin-echo, fast spin echo, FLAIR, and diffusion weighted sequences. Enhancement dose is 20 ml of intravenous ProHance. MRI findings: No bony calvarial lesion is appreciated. There is no MR evidence of significant paranasal sinus disease. No intraorbital abnormality is seen. There is mild small vessel changes in the form of punctate foci of subcortical T2 hyperintensity on FLAIR images in the frontal lobes bilaterally. There is no evidence of mass. No hemorrhage is seen. Diffusion weighted scans show no evidence of restricted diffusion to suggest acute ischemia. Postcontrast axial, sagittal and coronal images show enhancement of normal intracranial vasculature. No abnormal intracranial enhancement is appreciated. Impression: There is no evidence of intracranial metastasis. Electronically Signed by Sanjay Ma MD 11/04/2018 05:06 P
== END ==
LOC: M RAD 16:00
PROVIDERS: ATTEND Internal Medicine Medical Oncology
DX: C34.90 Malignant neoplasm of unspecified part of unspecified bronchus or lung (principal)
CPT/HCPCS: 70553; A9576

== ENCOUNTER → 2018-11-07 | Outpatient (CLI) | payer OTHER ==
[~2018-11-07] MED LIST changes: +CLAR10CA3 PO; +FULP6INJ SC; +LIDOCAINE 1% MDV 20ML VIAL As Ordered ONE; +LIDOCAINE W/EPINEPHRINE 1% 20ML VIAL As Ordered ONE; +MIDAZOLAM INJ 2 MG/2 ML VIAL (J2250) As Ordered ONE; +OLAN10TA2 PO; +ONDA8TAB10 PO; +PROC10TA4 PO; -PROHANCE 279.3MG/ML 15ML VIAL (A9576) As Ordered ONE; -PROHANCE 279.3MG/ML 5ML VIAL (A9576) As Ordered ONE; +SILV40CR EXT; +ceFAZolin 1GM INJ (J0690 PER 500MG) As Ordered ONE; +diphenhydrAMINE INJ 50MG/ML VIAL (J1200) As Ordered ONE; +fentaNYL 100 MCG/2 ML INJECTION (J3010) As Ordered ONE
--- NOTE | 2018-11-07 14:46 | IRHP ---
[facility] IR Pre-Procedure H & P General Procedure: Same Day Surgery Interval History and Physical I have seen the patient and reviewed last H & P performed within 30 days. There is no significant interval change. Patient is stable for procedure. History of Present Illness Chief Complaint The patient is a 63-year-old male admitted with a reason for visit of Sm Cell Lung Ca-Chemo. PRE-PROCEDURE DIAGNOSIS: lung ca HEART: normal rate LUNGS: normal breathing at rest Allergies Coded Allergies: Blueberry (Verified Allergy, Unknown, 10/03/18) wool (Verified Allergy, Unknown, 10/03/18) Home Medications Scheduled Aspirin (Aspir 81), 81 MG PO DAILY, (Reported) Atorvastatin Calcium (Atorvastatin Calcium), 40 MG PO DAILY, (Reported) Esomeprazole Magnesium (Nexium), 20 MG PO DAILY, (Reported) Fish Oil/Borage/Flax/Om3,6,9 1 (Franklin 3-6-9 Complex Softgel), 2 CAP PO DAILY, (Reported) Lisinopril (Lisinopril), 10 MG PO DAILY, (Reported) Metformin HCl (Metformin HCl), 500 MG PO BID, (Reported) Multivitamin (Multivitamins), 1 CAP PO DAILY, (Reported) Olodaterol HCl (Striverdi Respimat), 2.5 MCG IN BID, (Reported) Scheduled PRN Albuterol Sulfate (Proair Hfa), 2 PUFF INH Q4HP PRN for SOB/WHEEZING, (Reported) Oxycodone HCl/Acetaminophen (Percocet 5-325 mg Tablet), 1 TAB PO Q6H PRN for PAIN Discontinued Medications Ondansetron (Ondansetron Odt), 4 MG PO Q6-8HP PRN for nausea/vomiting Discontinued Reason: Pt states not taking VS, I&O, 24H, Fishbone Vital Signs/I&O Vital Signs Date Time Temp Pulse Resp B/P (MAP) Pulse Ox O2 Delivery O2 Flow Rate FiO2 11/07/18 14:20 97 64 18 97 MICHELLE BUTLER MD Nov 07, 2018 14:46
[2018-11-07 17:48] VITALS: BP 138/78
--- NOTE | 2018-11-08 10:52 | REP ---
IR Ultrasound and fluoroscopy-guided port placement. IR Ultrasound of the neck. IR Moderate sedation. Clinical information: Lung cancer. Physician: Dr. Rich. Procedure: The patient was advised of the benefits, risks, and alternatives of the procedure and informed consent was obtained. A time-out was performed with verification of the patient's name, MRN, site of procedure and type of procedure to be performed. The patient was positioned in the supine position on the angiographic table. The site was prepped and draped in the usual sterile fashion. Moderate sedation was performed by the physician including the presence of an independent trained observer who assisted and monitored the patient's level of consciousness and physiologic status. Following the administration of Fentanyl and Versed, the physician spent 45 minutes of continuous face to face time with the patient. Ultrasound of the neck reveals a patent and compressible right internal jugular vein. A earthmoving plant operator radiograph reveals left michael opacity. The neck and anterior chest wall were anesthetized with lidocaine. The right internal jugular vein was accessed using a microintroducer needle by a lateral approach. An 018 wire was advanced into the superior vena cava, the needle was removed and a microsheath was placed. An Amplatz wire was then passed into the inferior vena cava. An incision at the internal jugular vein access site and anterior chest wall were made using a scalpel. An incision was made at the anterior chest wall. A small pocket was created using a combination of blunt and sharp dissection. A tunneling device was then used to pass the catheter from the pocket to the neck puncture site. An 8-English Angiodynamics smart power port was then positioned in the pocket. The catheter was then measured and cut. The introducer sheath was exchanged for a peel-away sheath. The catheter was passed through the peel-away sheath into the internal jugular vein and the peel-away sheath was removed. The port tip was positioned at the cavo atrial junction. The port was then accessed with a Rodriguez needle. The port flushes and aspirates well. The puncture site in the neck was closed. The chest wall incision was then closed with 2-0 Vicryl and 4-0 Monocryl. Glue and Steri-Strips were applied. A sterile dressing was then applied. The patient tolerated the procedure well and was returned to the PRU in stable condition. Estimated blood loss: <5 ml. Complications: None. Conclusion: 1. Successful placement of an 8-English Angiodynamics smart power port via the right internal jugular vein. The port is ready for immediate use. 2. Patient to follow up in IR clinic in 2 weeks. Thank you for this referral. Electronically Signed by Chery Rich MD 11/07/2018 04:23 P
== END ==
LOC: M IRPRO 14:03
PROVIDERS: ATTEND Radiology Diagnostic Radiology
DX: C34.90 Malignant neoplasm of unspecified part of unspecified bronchus or lung (principal)
CPT/HCPCS: 36561; 76937; 99152; 99153; C1769; C1788; C1894; J0690; J1200; J2250; J3010

== ENCOUNTER → 2018-11-10 | Outpatient (CLI) | payer OTHER ==
[~2018-11-10] MED LIST changes: -CLAR10CA3 PO; -LIDOCAINE 1% MDV 20ML VIAL As Ordered ONE; -LIDOCAINE W/EPINEPHRINE 1% 20ML VIAL As Ordered ONE; -MIDAZOLAM INJ 2 MG/2 ML VIAL (J2250) As Ordered ONE; -ONDA8TAB10 PO; +ONDA8TAB7 PO; -SILV40CR EXT; -ceFAZolin 1GM INJ (J0690 PER 500MG) As Ordered ONE; -diphenhydrAMINE INJ 50MG/ML VIAL (J1200) As Ordered ONE; -fentaNYL 100 MCG/2 ML INJECTION (J3010) As Ordered ONE
--- NOTE | 2018-11-14 07:56 | RADONC ---
RADIATION ONCOLOGY CONSULTATION NOTE DATE: 11/10/2018 CHART NUMBER: [id number] DIAGNOSIS: Small cell lung carcinoma. STAGE: Limited: Stage IIB, [id number]. ECOG PERFORMANCE STATUS: 0 CONSULTATION NOTE: Mr. Chew is a very pleasant 63-year-old white male with the diagnosis of what appears to be a limited stage small-cell lung carcinoma, TNM classification stage IIB, [id number], of the left upper lobe who is presenting to us today for consideration of thoracic consolidative radiation therapy combined with chemotherapy as a therapeutic modality. HISTORY OF PRESENT ILLNESS: The patient was in his usual state of health but underwent low-dose lung screening CT scan on 08/24/2018 which revealed a 4.9 cm left upper lobe mass with spiculated margins. On 10/05/2018 the patient underwent bronchoscopic biopsy and pathology revealed a poorly differentiated small cell lung carcinoma. PET scan was done 10/25/2018 and showed hypermetabolic uptake with an SUV value of 16.73 in the left upper lobe. No other abnormal hypermetabolic uptake was noted. PAST MEDICAL HISTORY: The patient's past medical history is positive for arthritis, bronchitis, hypertension and diabetes. ALLERGIES: The patient has NO KNOWN DRUG ALLERGIES. SOCIAL HISTORY: The patient has smoked two packs of cigarettes per day for 50 years. He does not abuse alcohol. FAMILY HISTORY: The patient's family history is negative for lung cancer or other malignancies. REVIEW OF SYSTEMS: The patient's review of systems is positive for some anorexia, weight loss, some hearing loss as well as shortness of breath and dental problems. It is otherwise noncontributory. He denies nausea, vomiting, fevers, chills, night sweats, diplopia, headaches, anxiety, depression, chest pain, rectal bleeding urinary or bowel difficulties, bone pain or neurological problems. PHYSICAL EXAMINATION: The patient is a well-developed, well-nourished male in no acute distress. HEENT exam is normocephalic, atraumatic. Extraocular movements are intact. There is no palpable cervical, supraclavicular, infraclavicular, axillary, or inguinal lymphadenopathy present. Lungs are clear to auscultation and percussion. Heart has a regular rate and rhythm. Abdomen is benign with no hepatosplenomegaly, masses, or tenderness. Skeletal examination reveals no tenderness to pressure or percussion of the bony skeleton. Extremities reveal no clubbing, cyanosis, or edema. Neurologic exam is grossly intact as is the remainder of the physical examination. ASSESSMENT: I believe the patient is a candidate for external beam radiation therapy and I have so informed him. I have discussed with the patient in detail the potential benefits as well as possible acute and chronic sequelae of external beam radiation therapy. We have discussed the logistics of treatment planning, simulation and subsequent fractionated daily radiation treatments. I will obtain a copy of the patient's PFTs, but a letter from Dr. Luis Carlos Sharp MD reports that his FEV-1 is 2.16 or 68% of predicted. We will also obtain a differential lung scan and initiate treatment planning so that a dose volume histogram can be obtained. I will coordinate his care with medical oncology. Thank you for allowing us to participate in the care of this very pleasant gentleman. If I could be of any further assistance, or provide you with any information, please feel free to contact me at any time. cc: YAS Gómez MD Robert Johnson, MD Lawrence Kramer, MD
== END ==
LOC: M ONCR 10:31
PROVIDERS: ATTEND Radiology Radiation Oncology
DX: C34.12 Malignant neoplasm of upper lobe, left bronchus or lung (principal)

== ENCOUNTER → 2018-11-21 | Outpatient (CLI) | payer OTHER ==
--- NOTE | 2018-11-21 15:10 | REP ---
NUCLEAR DIFFERENTIATED VENTILATION/PERFUSION SCAN: Following the intravenous administration of 1.0 mCi of technetium-99m tagged MAA and the inhalation of 2 mCi of technetium-99m DTPA aerosol multiple images of the lungs are obtained in the anterior and posterior projections. Differentiated counts are obtained in the upper, middle and lower thirds of each lung. The mean perfusion of the left lung is 38.3% and of the right lung is 61.7%. The mean ventilation of the left lung is 38.9% and of the right lung is 61.1%. Electronically Signed by Mario Somers MD 11/22/2018 04:37 P
--- NOTE | 2018-11-21 18:21 | REP ---
Chest x-ray: Two views. History: Malignant neoplasm of the upper lobe on the left. Comparison chest x-ray October 05, 2018. Findings: A right-sided Yscknz-I-Qjog catheter has been inserted in the interval since the last exam. Its tip is seen in the expected location of the superior vena cava. The lungs are hyperinflated as before. There is a large perihilar mass on the left which currently measures 6.0 cm in craniocaudal by 4.6 cm in medial to lateral dimension. It appears somewhat larger than on the comparison radiograph. No infiltrate is seen. No hilar or mediastinal mass lesion is visible. Impression: [id number]-K-Sqfr catheter in place. Hyperinflation. 6 cm mass left perihilar region. Electronically Signed by Sanjay Ma MD 11/22/2018 09:33 A
== END ==
LOC: M RAD 13:09
PROVIDERS: ATTEND Radiology Radiation Oncology
DX: C34.12 Malignant neoplasm of upper lobe, left bronchus or lung (principal)
CPT/HCPCS: 71046; 78598; A9540; A9567

== ENCOUNTER → 2018-12-06 | Outpatient (REF) | payer OTHER ==
[2018-12-06 17:37] LABS: HEMOGLOBIN A1c 5.9 %
[2018-12-06 17:49] LABS: ALBUMIN 3.8 GM/DL (3.2-5.2); ALT/SGPT 29 U/L (12-78); BILIRUBIN,TOTAL 0.2 MG/DL (0.2-1.0); BLOOD UREA NITROGEN 10 MG/DL (7-18); CALCIUM LEVEL 9.3 MG/DL (8.8-10.2); CARBON DIOXIDE LEVEL 25 MEQ/L (21-32); CHLORIDE LEVEL 106 MEQ/L (98-107); CREATININE FOR GFR 0.62 MG/DL (0.70-1.30); GLOMERULAR FILTRATION RATE > 60.0 (>49); GLUCOSE, FASTING 86 MG/DL (70-100); POTASSIUM SERUM 4.3 MEQ/L (3.5-5.1); SODIUM LEVEL 139 MEQ/L (136-145); TOTAL PROTEIN 6.8 GM/DL (6.4-8.2)
== END ==
LOC: M SFHCPLAZ 14:27
PROVIDERS: ATTEND Nurse Practitioner Family
DX: E11.69 Type 2 diabetes mellitus with other specified complication (principal); E78.5 Hyperlipidemia, unspecified

== ENCOUNTER 2018-12-20 17:22 | Emergency (ER) | payer OTHER ==
[~2018-12-20] VITALS: Ht 172.7 cm; Wt 106.3 kg
[~2018-12-20 17:22] MED LIST changes: +CLAR10CA3 PO
[2018-12-20] MEDS ORDERED: SODIUM CHLORIDE 0.9% INJ 10 ML SYR IV PRN (18:15)
[2018-12-20] MEDS ORDERED: METOCLOPRAMIDE INJ 10MG/2ML VIAL (J2765) IV ONE (18:15)
[2018-12-20] MEDS ORDERED: NS 1,000 ML IV ONE (18:15)
[2018-12-20 18:39] LABS: BASO # 0.1 10^3/uL (0.0-0.2); BASO % 0.8 % (0.0-1.0); EOS # 0.1 10^3/uL (0.0-0.5); EOS % 0.4 % (0.0-3.0); HEMATOCRIT 40.8 % (42.0-52.0); HEMOGLOBIN 13.9 g/dl (13.5-17.5); LYMPH # 1.2 10^3/uL (1.5-5.0); LYMPH % 8.5 % (24.0-44.0); MEAN CORPUSCULAR HEMOGLOBIN 29.6 pg (27.0-33.0); MEAN CORPUSCULAR HGB CONC 34.1 g/dl (32.0-36.5); MEAN CORPUSCULAR VOLUME 86.8 fl (80.0-96.0); MONO # 0.8 10^3/uL (0.0-0.8); MONO % 5.7 % (0.0-5.0); NEUTROPHILS # 11.9 10^3/uL (1.5-8.5); PLATELET COUNT, AUTOMATED 244 10^3/uL (150-450); WHITE BLOOD COUNT 14.1 10^3/uL (4.0-10.0)
[2018-12-20 18:58] LABS: ALT/SGPT 25 U/L (12-78); BILIRUBIN,DIRECT 0.2 MG/DL (0.0-0.2); BLOOD UREA NITROGEN 21 MG/DL (7-18); CALCIUM LEVEL 9.4 MG/DL (8.8-10.2); CARBON DIOXIDE LEVEL 31 MEQ/L (21-32); CHLORIDE LEVEL 100 MEQ/L (98-107); CREATININE FOR GFR 0.76 MG/DL (0.70-1.30); GLOMERULAR FILTRATION RATE > 60.0 (>49); GLUCOSE, FASTING 112 MG/DL (70-100); LIPASE 112 U/L (73-393); POTASSIUM SERUM 3.8 MEQ/L (3.5-5.1); SODIUM LEVEL 136 MEQ/L (136-145); TOTAL PROTEIN 7.2 GM/DL (6.4-8.2)
[2018-12-20 20:44] VITALS: BP 145/70
== END 2018-12-20 21:01 | disposition home or self-care (01) ==
LOC: M ED 17:22
DX: R11.10 Vomiting, unspecified (principal); C34.12 Malignant neoplasm of upper lobe, left bronchus or lung; I10 Essential (primary) hypertension; E78.5 Hyperlipidemia, unspecified; K21.9 Gastro-esophageal reflux disease without esophagitis; K44.9 Diaphragmatic hernia without obstruction or gangrene; G47.30 Sleep apnea, unspecified; F17.210 Nicotine dependence, cigarettes, uncomplicated; Z91.018 Allergy to other foods; Z91.048 Other nonmedicinal substance allergy status; Z79.899 Other long term (current) drug therapy; Z79.84 Long term (current) use of oral hypoglycemic drugs; Z79.82 Long term (current) use of aspirin
CPT/HCPCS: 80048; 80076; 83690; 85025; 96374; 99284; J2765

== ENCOUNTER 2018-12-21 10:45 | Outpatient (RCR) | payer OTHER ==
--- NOTE | 2018-11-28 07:01 | RADONC ---
RADIATION ONCOLOGY SIMULATION NOTE DATE: 11/24/2018 CHART NUMBER: [id number] Mr. Chew was taken to the CT scan for CT simulation of his left lung field. CT was accomplished without difficulty or discomfort. Radiation treatment planning is under way and radiation treatments will begin subsequently. An immobilization device was created without difficulty or discomfort. It will be used throughout the course of treatment. I was physically present throughout the course of CT simulation.
--- NOTE | 2018-12-05 15:35 | RADONC ---
RADIATION ONCOLOGY PROGRESS NOTE DATE: 12/05/2018 CHART NUMBER: [id number] PROGRESS NOTE: Mr. Chew is presently at a dose of 720 cGy to his left lung and is tolerating treatments quite well at this point with no complaints related to his radiation therapy. He is having no increased difficulty swallowing or breathing. REVIEW OF SYSTEMS: The patient's review of systems is noncontributory. Denies nausea, vomiting, fevers, chills, night sweats, diplopia, headaches, anxiety or depression, anorexia, weight loss, visual disturbances, chest pain, urinary or bowel difficulties, bone pain, or neurological problems. PHYSICAL EXAMINATION: The patient's skin is in good condition with no evidence of radiation change present. The remainder of his physical exam remains unchanged as well. Ms. Chew is tolerating treatments quite well and radiation will continue as scheduled.
--- NOTE | 2018-12-13 08:24 | RADONC ---
RADIATION ONCOLOGY PROGRESS NOTE DATE: 12/12/2018 CHART NUMBER: [id number] PROGRESS NOTE: Mr. Chew with a diagnosis of a malignant neoplasm involving the upper lobe of the left bronchus stage II A - [id number] is currently receiving radiation and his dose to date is 1620 cGy of an anticipated 6480 cGy and reevaluate. He is doing fairly well and denies any major significant untoward side effects. REVIEW OF SYSTEMS: He denies any nausea, vomiting, coughing, sputum production or hemoptysis. He does claim that he is fatigued and notes that he gets "winded" easier than he does prior the initiation of the radiotherapy. He also has a minimal amount of dysphagia with swallowing but it is quite minimal. He denies any significant skin irritation or other new areas of pain. The remainder of the review of systems is unchanged. EXAMINATION FINDINGS: The skin within the irradiated volume shows perhaps minimal amount of pink but barely perceptible. There is no palpable peripheral lymphadenopathy. Lungs are clear but distant consistent with COPD. The remainder of the physical examination is unchanged. IMPRESSION: Tolerating therapy well. PLAN: Treatments to continue. MTDD
--- NOTE | 2018-12-19 12:01 | RADONC ---
RADIATION ONCOLOGY PROGRESS NOTE DATE: 12/19/2018 CHART NUMBER: [id number] PROGRESS NOTE: Mr. Chew is presently at a dose of 2520 cGy to his left lung and overall has been tolerating his treatments well. He is having no difficulty swallowing. The patient reports that since his last chemotherapy he has had no appetite and has had some dry heaves. He said over the weekend he was eating hardly any food. He does report however drinking fluids and having no problems swallowing his fluids. REVIEW OF SYSTEMS: The patient's review of systems is positive for anorexia, weight loss and some episodic nausea, but is otherwise noncontributory. Denies nausea, vomiting, fevers, chills, night sweats, diplopia, headaches, anxiety or depression, anorexia, weight loss, visual disturbances, chest pain, urinary or bowel difficulties, bone pain, or neurological problems. PHYSICAL EXAMINATION: The patient is physical exam is positive for an 11 pound weight loss in the past week. On 12/12/2018, the patient weighed 248.6 pounds. He now weighs 237.4 pounds. The remainder of his physical exam remains unchanged. Mr. Chew is tolerating his radiation treatments without difficulty. We discussed the possibility of IV fluids but actually he is drinking without difficulty, and therefore, I have not ordered any at this time. He has been given dietary instructions. In the meantime radiation will continue as scheduled and we will continue to monitor him.
--- NOTE | 2018-12-21 13:55 | MEDONC ---
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 4.9-cm left upper lobe mass with spiculated margins. No other sites of disease. CURRENT THERAPY: Combined chemoradiation with carboplatin and etoposide, day 1, cycle one 11/21/2018. Day 1, cycle two 12/13/2018. INTERVAL HISTORY: Amish is seen today for an unscheduled visit. He has completed cycle two of coordinate chemotherapy (12/13/2018 through 12/15/2018). He was seen in [facility] ED yesterday (12/20/2018) for an approximate 3-day history of epigastric pain, dysphagia, and also a noted 14-pound weight loss. Amish indicates that his pain is clearly epigastric. He has had this type of pain previously with a diagnosis of pancreatitis. Blood work, however, is unremarkable, including a CBC and chemistries. No nausea or vomiting. No lower abdominal pain, diarrhea, or constipation. No blood per rectum. Currently, no progressive dyspnea or cough. REVIEW OF SYSTEMS: In addition to pertinent positives and negatives above, the patient denies any urinary symptoms, tingling or numbness in his hands or feet that is new. Remainder of 12-system review is negative. PHYSICAL EXAMINATION: Current weight is 107 kg (235 pounds, down from 113 kg, 249 pounds 1 week ago). Temperature is 98.1, pulse 83, respirations 18, BP 107/68, O2 sat 97% at rest on room air. General exam reveals a pleasant middle-aged man, who is clinically stable and in no acute distress. HEENT: No scleral icterus. Oropharynx, oral mucous membranes normal. Conjunctivae normal. No thyroid enlargement or nodule. No jugular venous distention. Neck supple. Carotid upstrokes 1+, no bruits. Fundi normal bilaterally. Respiratory: Lungs clear bilaterally to auscultation and percussion. No rales, rhonchi, or wheezing. Cardiovascular: PMI 5th left intercostal space, midline. S1, S2 normal. No S3, S4 or murmurs. Regular rhythm. Femoral, dorsalis pedis pulses 2+ bilaterally. Abdomen: Positive for normoactive bowel sounds. Tenderness is reported in the epigastric area. No obvious abdominal distention or palpable hepatosplenomegaly or mass. Extremities: Without clubbing, cyanosis, or edema. LABORATORY DATA: From 12/20/2018 unremarkable with the exception of an elevated white blood cell count of 14.1, ANC of 11.9 (status post Fulphila). Chemistries unremarkable with the exception of a minimally elevated alkaline phosphatase of 138, lipase within normal parameters at 112, kidney function normal, as are the LFTs and direct bilirubin. IMPRESSION: Amish is seen today for an unscheduled visit with an approximate 3-day history of epigastric pain, dysphagia, and an approximate 14-pound weight loss over the past week of unclear etiology. Amish does have a history of pancreatitis. Upon review of additional imaging done recently, studies also include a gallbladder ultrasound on 10/10/2018 that shows an echogenic liver consistent with diffuse fatty infiltration. No evidence of gallstones. Mild prominence of the extrahepatic bile duct, the common bile duct measuring 9 mm, no intraductal stones visualized. After taking a Percocet last evening following discharge from the ED, Amish indicates his pain is resolved today. However, he did report tenderness to palpation in the epigastric region on exam. Etiology of the patient's symptoms remains unclear, doubtful if related to the patient's chemotherapy. PLAN: 1. Request a.s.a.p. CT of the chest, abdomen and pelvis with p.o. and IV contrast. 2. Return as scheduled for day 1, cycle three of chemotherapy with blood work and an office visit on 12/26/2018. The patient was advised to contact us sooner with any additional new symptoms, problems, or concerns. ADDENDUM: The patient's symptoms were treated in the ED with IV hydration and one dose of Reglan. Electronically Signed by Raven Syed NP 12/22/2018 06:39 A DD: Raven Syed NP 12/21/2018 11:50 A DT: aml 12/21/2018 01:39 P CC: MD Venus Merritt FNP
== END 2018-12-22 ==
LOC: M ONCR 10:45
PROVIDERS: ATTEND Radiology Radiation Oncology
DX: C34.12 Malignant neoplasm of upper lobe, left bronchus or lung (principal)

== ENCOUNTER → 2018-12-23 | Outpatient (CLI) | payer OTHER ==
[~2018-12-23] MED LIST changes: +GASTROGRAFIN SOLUTION 30ML (Q9963) As Ordered ONE; +ISOVUE-370 76% 100ML VIAL (Q9967) As Ordered ONE
--- NOTE | 2018-12-23 19:39 | REP ---
Clinical: Lung cancer with epigastric pain. Technique: Axial contrast enhanced images from the thoracic inlet to the upper abdomen with coronal and sagittal re-formations using 100 ml Isovue 370 intravenous contrast material. Comparison: 08/24/2018. Findings: Linear ill-defined fiber atelectatic changes and small amounts of soft tissue are now identified at the site of previous 5 cm left upper lobe perihilar lung mass. Remainder of the bilateral lung butler are well-aerated and without further consolidation, nodule or mass lesion. No pleural effusion. No pneumothorax. Mediastinum demonstrates normal thoracic aorta and heart/pericardium. No obvious adenopathy. Tracheobronchial tree is patent. Remainder of the mediastinal soft tissue structures including esophagus appear relatively normal. Surrounding musculoskeletal structures are intact and without focal osseous abnormality. [id number] identified with tip in the SVC. Limited upper abdomen demonstrates normal bilateral adrenal glands. Impression: 1. Previously noted perihilar left upper lobe lung mass is essentially resolved small amounts of residual soft tissue and fiber atelectatic changes noted. Correlation and continued follow up may be warranted. 2. Otherwise normal contrast enhanced CT of the chest. Electronically Signed by Prasanna Armendariz MD 12/23/2018 07:31 P
--- NOTE | 2018-12-23 19:50 | REP ---
Clinical: Epigastric pain with history of lung cancer. Technique: Axial contrast enhanced images from the lung bases to the pubic symphysis using oral (per protocol) and 100 ml Isovue 370 intravenous contrast material with coronal and sagittal re-formations. Comparison: 10/10/2018. Findings: Lung bases are clear. Visualized heart and pericardium normal. Liver, spleen, pancreas, gallbladder, bilateral adrenal glands and kidneys are normal. The enteric system is without obstruction or acute inflammatory process. Normal terminal ileum and appendix identified in the right lower quadrant. Few colonic and sigmoid diverticula noted without acute diverticulitis. Pelvis demonstrates mildly prominent prostate gland with mass effect on the base of the bladder. No ascites. No free air. No significant adenopathy. Abdominal aorta without aneurysm or dissection. 1 cm fat containing periumbilical hernia. Musculoskeletal structures demonstrate age-related changes without focal abnormality. Impression: 1. No acute abdominopelvic pathology appreciated. 2. Scattered diverticula without acute diverticulitis. 3. 1 cm fat containing periumbilical hernia. Electronically Signed by Prasanna Armendariz MD 12/23/2018 07:42 P
== END ==
LOC: M RAD 15:55
PROVIDERS: ATTEND Nurse Practitioner Family
DX: R10.9 Unspecified abdominal pain (principal); R63.4 Abnormal weight loss

== ENCOUNTER → 2019-01-10 | Outpatient (POV) | payer OTHER ==
[~2019-01-10] VITALS: Ht 170.2 cm; Wt 109.1 kg
[~2019-01-10] MED LIST changes: -GASTROGRAFIN SOLUTION 30ML (Q9963) As Ordered ONE; -ISOVUE-370 76% 100ML VIAL (Q9967) As Ordered ONE; +SILV40CR EXT
[2019-01-10 12:00] VITALS: BP 140/70
--- NOTE | 2019-01-11 08:25 | IRPN ---
[facility] IR Progress Note IR Progress Note DATE: Jan 10, 2019 FOLLOW-UP: Status post port placement. Doing well. No fevers or chills. Port has been accessed without difficulty. Complains of area over venotomy site which sometimes bleeds. ON EXAMINATION: Port site appears to be healing well. No redness, tenderness, discharge or fluctuance. Venotomy site has a dissolving stitch in place. No discharge. IMPRESSION: Doing well status post port placement. Venotomy stitch will dissolve. Follow up in IR clinic in 3 months time. Thank you for this referral Allergies Coded Allergies: Blueberry (Verified Allergy, Unknown, 10/03/18) wool (Verified Allergy, Unknown, 10/03/18) VS,Fishbone, I+O VS, Fishbone, I+O Vital Signs Date Time Temp Pulse Resp B/P (MAP) Pulse Ox O2 Delivery O2 Flow Rate FiO2 01/10/19 12:00 98.3 79 16 140/70 (93) 94 Room Air MICHELLE BUTLER MD Jan 11, 2019 08:25
== END ==
LOC: M IRPOV 12:03
PROVIDERS: ATTEND Radiology Diagnostic Radiology
DX: Z45.2 Encounter for adjustment and management of vascular access device (principal)

== ENCOUNTER 2019-01-18 10:42 | Outpatient (RCR) | payer OTHER ==
--- NOTE | 2018-12-26 14:09 | RADONC ---
RADIATION ONCOLOGY PROGRESS NOTE DATE: 12/26/2018 CHART #: [id number] Mr. Chew with a diagnosis of a left bronchial carcinoma, stage II A, is currently receiving local regional radiotherapy. He was tolerating his therapy reasonably well, but last week was noted to have lost approximately 14 pounds, and because of which he was placed on a break of his radiotherapy. He was reseen today and he has gained back 4 of those 14 pounds which he had lost last week. He feels that the pain he was experiencing has improved significantly and he feels that he is able to eat now with less discomfort and less anxiety. His energy level has improved and he is able to maintain many day-to-day functions normally. I believe that he is able to reinitiate his treatments and we have explained that if he feels again as though he is unable to consume adequate caloric intake that he be referred back for nutritional supplementation. EXAMINATION FINDINGS: The skin within the irradiated volume looks normal. There is no palpable peripheral lymphadenopathy. Lungs are distant bilaterally. Heart regular. IMPRESSION: The patient appears to have recovered from the severe odynophagia and dysphagia he was experiencing during his examination last week. PLAN: We will reinitiate his treatments and watch his weight. [facility]
--- NOTE | 2019-01-02 11:48 | RADONC ---
RADIATION ONCOLOGY PROGRESS NOTE DATE: 01/02/2019 CHART NUMBER: [id number] PROGRESS NOTE: Mr. Chew is presently at a dose of 3600 cGy to his left lung and is tolerating treatments quite well at this point with no new complaints related to his radiation therapy. He continues have a cough and some shortness of breath. REVIEW OF SYSTEMS: The patient's review of systems is positive for cough and shortness of breath, but is otherwise generally noncontributory. Denies nausea, vomiting, fevers, chills, night sweats, diplopia, headaches, anxiety or depression, anorexia, weight loss, visual disturbances, chest pain, urinary or bowel difficulties, bone pain, or neurological problems. PHYSICAL EXAMINATION: The patient's skin is in good condition with no evidence of moist or dry desquamation. The remainder of his physical exam remains unchanged. Mr. Chew is tolerating treatments quite well and radiation will continue as scheduled.
--- NOTE | 2019-01-10 11:02 | RADONC ---
RADIATION ONCOLOGY PROGRESS NOTE DATE: 01/09/2019 CHART NUMBER: [id number] PROGRESS NOTE: Mr. Chew is presently at a dose of 4500 cGy to his left lung and overall is tolerating his treatments but with fatigue. His weight today is down about 6 pounds, but it had jumped up 6 pounds the week before from the previous week. So, his weight is actually stable from 12/26/2018. His skin is in good condition with no evidence of moist or dry desquamation, and the remainder of his physical exam remains unchanged. Mr. Chew is tolerating treatments quite well at this point and radiation will continue as scheduled.
--- NOTE | 2019-01-18 08:46 | RADONC ---
RADIATION ONCOLOGY PROGRESS NOTE DATE: 01/16/2019 CHART #: [id number] Mr. Chew is presently at a dose of 5400 cGy to his left lung and is tolerating treatments quite well at this point with no complaints related to his radiation therapy. He is having no significant difficulty swallowing or breathing. REVIEW OF SYSTEMS: The patient's review of systems is noncontributory. Denies nausea, vomiting, fevers, chills, night sweats, diplopia, headaches, anxiety or depression, anorexia, weight loss, visual disturbances, chest pain, urinary or bowel difficulties, bone pain, or neurological problems. PHYSICAL EXAMINATION: The patient's skin is in good condition with no evidence of moist or dry desquamation. There is some erythema present over the patient's back as well as his chest. The remainder of his physical exam remains unchanged. Mr. Chew is tolerating treatments quite well and radiation will continue as scheduled.
== END 2019-01-21 ==
LOC: M ONCR 10:42
PROVIDERS: ATTEND Radiology Radiation Oncology
DX: C34.12 Malignant neoplasm of upper lobe, left bronchus or lung (principal)

== ENCOUNTER 2019-01-26 10:45 | Outpatient (RCR) | payer OTHER ==
--- NOTE | 2019-01-24 10:31 | RADONC ---
RADIATION ONCOLOGY NOTE: DATE OF SERVICE: 01/24/2019 CHART NUMBER: [id number] Mr. Chew carries the diagnosis of limited stage small cell CA of the left lung. So far he has received dose of 6400 cGy to the left lung. He has no complaints. He said he has lost some weight initially, however, his weight is stable. He denies any dysphagia, nausea or vomiting. We have discussed prophylactic brain radiation therapy after the current treatment is completed. On physical examination, his lungs are clear. So far he is tolerating treatment well and the radiation therapy will continue as planned.
--- NOTE | 2019-01-26 13:22 | RADONC ---
RADIATION ONCOLOGY TREATMENT SUMMARY DATE OF SERVICE: 01/26/2019 CHART NUMBER: [id number] DIAGNOSIS: Small cell lung cancer, limited stage. Mr. Chew is a very pleasant 63-year-old gentleman who carries a diagnosis of limited stage small cell lung cancer. He started radiation therapy 11/30/2018. He has received a dose of 6480 cGy in 36 fractions from 11/30/2018 to 01/26/2019. Radiation therapy was delivered using 3D with 15 Mev . His treatment was uneventful. He tolerates treatment without unusual side effect. He said he experiencing some dysphagia. I have discussed diet and he has maintained his weight is stable. I have discussed PCI in the future. He was advised to continue his followup care with the physicians involved and he was also asked to return here in 1 month for check up. MALKA
== END 2019-02-21 ==
LOC: M ONCR 10:45
PROVIDERS: ATTEND Radiology Radiation Oncology
DX: C34.12 Malignant neoplasm of upper lobe, left bronchus or lung (principal)

== ENCOUNTER → 2019-03-01 | Outpatient (CLI) | payer OTHER ==
--- NOTE | 2019-03-03 06:57 | RADONC ---
RADIATION ONCOLOGY FOLLOWUP NOTE DATE: 03/01/2019 CHART NUMBER: [id number] DIAGNOSIS: Small cell lung carcinoma. STAGE: Limited: Stage IIB, [id number]. ECOG PERFORMANCE STATUS: 0 FOLLOWUP NOTE: Mr. Chew is a very pleasant 63-year-old white male with the diagnosis of what appears to be a limited stage small-cell lung carcinoma, TNM classification stage [id number] of the left upper lobe who is presenting to us today 1 month post completion of thoracic consolidative radiation therapy combined with chemotherapy for a followup visit as well as discussion of possible prophylactic cranial irradiation. The patient presents today reporting that he is doing quite well with no complaints at this time related to his radiation therapy or disease. He is having no difficulty swallowing or breathing. He is having no headaches or other problems. REVIEW OF SYSTEMS: The patient's review of systems is noncontributory. He denies nausea, vomiting, fevers, chills, night sweats, diplopia, headaches, anxiety or depression, anorexia, weight loss, visual disturbances, chest pain, urinary or bowel difficulties, bone pain or neurological problems. PHYSICAL EXAMINATION: The patient is a well-developed, well-nourished male in no acute distress. HEENT exam is normocephalic, atraumatic. Extraocular movements are intact. There is no palpable cervical, supraclavicular, infraclavicular, axillary, or inguinal lymphadenopathy present. Lungs are clear to auscultation and percussion. Heart has a regular rate and rhythm. Abdomen is benign with no hepatosplenomegaly, masses, or tenderness. Skeletal examination reveals no tenderness to pressure or percussion of the bony skeleton. Extremities reveal no clubbing, cyanosis, or edema. Neurologic exam is grossly intact as is the remainder of the physical examination. ASSESSMENT: The patient is clinically doing quite well now having completed his systemic therapy and thoracic consolidative radiation. He is scheduled for an MR of the brain tomorrow for further evaluation. I have scheduled him to have a PET scan done in approximately 4 weeks to further evaluate his response to treatment. Clearly, if the patient is free of obvious disease, then he would be a candidate for prophylactic cranial irradiation. I spoke with the patient in detail about the potential benefits as well as possible acute and chronic sequelae of external beam radiation therapy. We discussed the logistics of treatment planning, simulation and subsequent fractionated daily radiation treatments. Prophylactic cranial irradiation consists of 10 fractions of 250 cGy each to the brain via parallel opposed lateral butler utilizing 3D conformal therapy. The patient is aware of the increased risks of some neurological issues with prophylactic cranial irradiation, but he is also aware that this will reduce the chances of a recurrence as well. We discussed the possibility of watching this and treating it if brain metastasis develop as well. Clearly, the option is his to choose which course he wishes to take. I discussed the NCCN guidelines and the current recommendations for prophylactic cranial irradiation. Should the MRI come back with brain metastasis, then of course radiation therapy would be clearly indicated for palliation of brain metastasis in which case the dose would be higher at a dose of 300 cGy per fraction x10 fractions for a total dose of 3000 cGy, once again using parallel opposed lateral butler and 3D conformal technique. In summary, the patient is scheduled for an MRI of the brain tomorrow, which we will review, and a PET scan to be done in four weeks' time after which he will be in my office to rediscuss and reevaluate all his options. I have asked him to think about this in the meantime and he has been given my cell phone number and office number if he has any questions or if I could provide him any information prior to his visit in 4 weeks. Thank you for allowing us to participate in the care of this very pleasant gentleman. If I could be of any further assistance or provide you any information, please free to contact me anytime as always warm regards nausea. cc: YAS Gómez MD Robert Johnson, MD Lawrence Kramer, MD
== END ==
LOC: M ONCR 10:18
PROVIDERS: ATTEND Radiology Radiation Oncology
DX: C34.12 Malignant neoplasm of upper lobe, left bronchus or lung (principal)

== ENCOUNTER → 2019-03-02 | Outpatient (CLI) | payer OTHER ==
[~2019-03-02] MED LIST changes: +PROHANCE 279.3MG/ML 15ML VIAL (A9576) As Ordered ONE; +PROHANCE 279.3MG/ML 5ML VIAL (A9576) As Ordered ONE
--- NOTE | 2019-03-02 13:58 | REP ---
INDICATION: Small cell lung cancer restaging. PROCEDURE: MR brain with and without contrast. COMPARISON STUDIES: No prior similar studies FINDINGS: No evidence of restricted diffusion to suggest acute infarction. No gradient-echo susceptibility to suggest hemorrhage. The ventricles and extra-axial CSF spaces are within normal limits for age. No mass effect or midline shift. No abnormal fluid collections. Following contrast, no abnormal enhancement. On diffusion and post contrast imaging, no evidence of a calvarial lesion. CONCLUSION: No evidence of metastatic disease to brain or calvarium. Electronically Signed by John Wade MD 03/02/2019 01:50 P
== END ==
LOC: M RAD 09:28
PROVIDERS: ATTEND Internal Medicine Medical Oncology
DX: C34.90 Malignant neoplasm of unspecified part of unspecified bronchus or lung (principal)
CPT/HCPCS: 70553; A9576

== ENCOUNTER → 2019-03-07 | Outpatient (POV) | payer OTHER ==
[~2019-03-07] VITALS: Ht 170.2 cm; Wt 113.6 kg
[~2019-03-07] MED LIST changes: +ONDA8TAB10 PO; -ONDA8TAB7 PO; -PROHANCE 279.3MG/ML 15ML VIAL (A9576) As Ordered ONE; -PROHANCE 279.3MG/ML 5ML VIAL (A9576) As Ordered ONE
[2019-03-07 13:25] VITALS: BP 162/89
--- NOTE | 2019-03-08 09:12 | IRPN ---
[facility] IR Progress Note IR Progress Note DATE: Mar 07, 2019 FOLLOW-UP: Status post port placement. Patient doing well. Port working well. ON EXAMINATION: Chest port site healed. Venotomy site still appears nonhealed. No redness, tenderness, discharge or pain. Patient has completed chemotherapy. Will keep an eye on the venotomy. IMPRESSION: Venotomy site appears nonhealed. No redness, tenderness or signs of infection. Patient has completed chemotherapy. We'll keep an eye on this venotomy site and when port is no longer needed we can remove it. Thank you for this referral Allergies Coded Allergies: Blueberry (Verified Allergy, Unknown, 10/03/18) wool (Verified Allergy, Unknown, 10/03/18) VS,Fishbone, I+O VS, Fishbone, I+O Vital Signs Date Time Temp Pulse Resp B/P (MAP) Pulse Ox O2 Delivery O2 Flow Rate FiO2 03/07/19 13:25 99.0 74 18 162/89 (113) 94 Room Air MICHELLE BUTLER MD Mar 08, 2019 09:12
== END ==
LOC: M IRPOV 13:03
PROVIDERS: ATTEND Radiology Diagnostic Radiology
DX: Z45.2 Encounter for adjustment and management of vascular access device (principal)

== ENCOUNTER → 2019-04-04 | Outpatient (CLI) | payer OTHER ==
[~2019-04-04] MED LIST changes: +GASTROGRAFIN SOLUTION 30ML (Q9963) As Ordered ONE; +ISOVUE-370 76% 100ML VIAL (Q9967) As Ordered ONE
--- NOTE | 2019-04-04 14:57 | REP ---
Clinical: History of lung cancer. Technique: Axial contrast enhanced images from the thoracic inlet to the upper abdomen with coronal and sagittal re-formations using 100 ml Isovue 370 intravenous contrast material. Comparison: 12/23/2018, 08/24/2018 Findings: Current examination demonstrates slightly increased linear soft tissue in relation to the area of prior malignancy at the perihilar left upper lobe extending laterally to the pleural surface. The underlying mass lesion as identified on 08/24/2018 appears considerably decreased in size. Small focal areas of pleural thickening are also identified along the periphery of the left lung representing a change from prior examination. These findings are nonspecific and while they may be related to post radiation changes, active process cannot be excluded. The right hemithorax is clear. No further focal new nodule or mass lesion is appreciated. No effusion. No pneumothorax. Mediastinal lymph nodes are unchanged and measure up to approximately 13 mm. Thoracic aorta, pulmonary vasculature and heart/pericardium appear stable/normal. Musculoskeletal structures are intact without focal abnormality. Limited upper abdomen demonstrates normal bilateral adrenal glands. [id number] identified with tip in the SVC/right atrium. Impression: 1. While the large mass in the perihilar left upper lobe has significantly decreased, there is subtle areas of increased linear soft tissue density and small scattered subpleural densities representing a change from prior examination. Findings may represent postradiation type change although active disease cannot definitively be excluded. 2. No further new process appreciated. Electronically Signed by Prasanna Armendariz MD 04/04/2019 02:48 P
--- NOTE | 2019-04-04 15:14 | REP ---
Clinical: History of lung cancer. Technique: Axial contrast enhanced images from the lung bases to the pubic symphysis using oral (per protocol) and 100 ml Isovue 370 intravenous contrast material with coronal and sagittal re-formations. Findings: Mild fatty infiltration to the liver suggested without focal hepatic lesion. Spleen, pancreas, gallbladder, bilateral adrenal glands and kidneys are normal. The enteric system is without obstruction or acute inflammatory process. Few sigmoid diverticula noted without acute diverticulitis. Small fat containing periumbilical hernia again noted. Pelvis demonstrates normal bladder and moderately enlarged prostate gland. No ascites. No free air. No adenopathy. Abdominal aorta without aneurysm or dissection. Musculoskeletal structures demonstrate age-related changes without focal abnormality. Impression: 1. Hepatic steatosis. 2. Sigmoid diverticula without acute diverticulitis. 3. No acute abdominopelvic pathology appreciated. 4. No evidence for metastatic disease. Electronically Signed by Prasanna Armendariz MD 04/04/2019 03:05 P
== END ==
LOC: M RAD 11:58
PROVIDERS: ATTEND Radiology Radiation Oncology
DX: C34.90 Malignant neoplasm of unspecified part of unspecified bronchus or lung (principal)
CPT/HCPCS: 71260; 74177; Q9963; Q9967

== ENCOUNTER → 2019-05-08 | Outpatient (CLI) | payer OTHER ==
[~2019-05-08] MED LIST changes: -GASTROGRAFIN SOLUTION 30ML (Q9963) As Ordered ONE; -ISOVUE-370 76% 100ML VIAL (Q9967) As Ordered ONE
--- NOTE | 2019-05-08 17:12 | REP ---
PET/CT: History: Restaging lung cancer. Limited stage small cell lung carcinoma. Status post chemo radiation therapy. Comparisons: Comparison PET-CT study is from October 25, 2018. Comparison chest CT exam April 04, 2019. TECHNIQUE: 45 minutes following the intravenous injection of a 8.81 mCi dose of F-18 FDG, three-dimensional PET scintigraphy is acquired from the skull base to the proximal thighs. Triplanar noncontrast CT scanning is acquired through the same anatomic range for attenuation correction, and image registration with scan parameters optimized to minimize radiation exposure to the patient. PET scintigraphy and CT datasets were fused and displayed on a workstation with multiplanar and projection display capability. PET/CT Findings: On the previous study, left perihilar mass was hypermetabolic, 16.73. On today's examination, this lesion is no longer visible. There are scattered, subpleural and intraparenchymal foci of mildly hypermetabolic linearly aligned uptake consistent with postradiation changes. Uptake in these pulmonary parenchymal areas ranged from 2.35-4.61. No other abnormal hypermetabolic uptake is seen. Impression: The previously noted left perihilar mass is no longer apparent. There is a post radiation pattern of multifocal uptake and parenchymal fibrosis in the left lung with mildly increased uptake as above. No other abnormal hypermetabolic uptake focus is seen. Electronically Signed by Sanjay Ma MD 05/09/2019 07:54 Samantha
== END ==
LOC: M PLARAD 10:31
PROVIDERS: ATTEND Radiology Radiation Oncology
DX: C34.12 Malignant neoplasm of upper lobe, left bronchus or lung (principal)
CPT/HCPCS: 78815; A9552

== ENCOUNTER → 2019-05-12 | Outpatient (CLI) | payer OTHER ==
[~2019-05-12] MED LIST changes: +ISOVUE-370 76% 100ML VIAL (Q9967) As Ordered ONE
--- NOTE | 2019-05-12 14:49 | REP ---
CT BRAIN WITHOUT AND WITH IV CONTRAST: HISTORY: Restaging lung carcinoma. Comparison brain MRI study March 02, 2019. CT CONTRAST DOSE: 75 mL of intravenous ProHance. FINDINGS: Preliminary digital croze machine operator radiograph is unremarkable. Bone window settings show no bony destructive lesion. The visualized paranasal sinuses are clear. No intraorbital abnormality is appreciated. On soft tissue window settings, there is no evidence of intracranial mass lesion. No extra-axial fluid collection or infarction is seen. No midline shift is seen. Postcontrast images show enhancement in normal vasculature. No abnormal contrast enhancement is appreciated. IMPRESSION: There is no evidence of intracranial metastatic disease. Electronically Signed by Sanjay Ma MD 05/12/2019 02:53 P
== END ==
LOC: M RAD 13:48
PROVIDERS: ATTEND Internal Medicine Medical Oncology
DX: C34.90 Malignant neoplasm of unspecified part of unspecified bronchus or lung (principal)
CPT/HCPCS: 70470; Q9967

== ENCOUNTER → 2019-05-16 | Outpatient (POV) | payer OTHER ==
[~2019-05-16] VITALS: Ht 170.2 cm; Wt 113.6 kg
[~2019-05-16] MED LIST changes: -ISOVUE-370 76% 100ML VIAL (Q9967) As Ordered ONE
[2019-05-16 10:05] VITALS: BP 155/79
--- NOTE | 2019-05-17 12:24 | IRPN ---
[facility] IR Progress Note IR Progress Note DATE: May 17, 2019 Status post port placement many months ago. Patient suffers with some bleeding at the venotomy site. No fevers chills, pain or tenderness. Port is being used without any problems. No further chemotherapy planned at present. Patient is scheduled to get radiation therapy. On examination port site appears to healed well. However, the venotomy site appears to have some granulation tissue and is not completely sealed. No tenderness, discharge or fluctuance. Impression: Venotomy site of port is not completely healed despite many months. No fevers chills or discharge at site. If port is no longer needed, I'd rather remove it. We'll schedule the patient for port removal within a couple of months. Allergies Coded Allergies: Blueberry (Verified Allergy, Unknown, 10/03/18) wool (Verified Allergy, Unknown, 10/03/18) VS,Fishbone, I+O VS, Fishbone, I+O Vital Signs Date Time Temp Pulse Resp B/P (MAP) Pulse Ox O2 Delivery O2 Flow Rate FiO2 05/16/19 10:05 98.0 75 20 155/79 (104) 95 Room Air MICHELLE BUTLER MD May 17, 2019 12:24
== END ==
LOC: M IRPOV 10:00
PROVIDERS: ATTEND Radiology Diagnostic Radiology
DX: T81.89XA Other complications of procedures, not elsewhere classified, initial encounter (principal); X58.XXXA Exposure to other specified factors, initial encounter; Z45.2 Encounter for adjustment and management of vascular access device

== ENCOUNTER 2019-06-15 10:36 | Outpatient (RCR) | payer OTHER ==
[2019-06-15] MEDS ORDERED: DEXA2TA PO (11:02)
--- NOTE | 2019-06-15 11:48 | RADONC ---
RADIATION ONCOLOGY SIMULATION NOTE DATE: 06/15/2019 CHART NUMBER: [id number] SIMULATION NOTE: Mr. Chew was taken to the CT scan for CT simulation of his prophylactic cranial field. CT was accomplished without difficulty or discomfort. Radiation treatment planning is underway and radiation treatments will begin subsequently. An immobilization device was created including a mask without difficulty or discomfort. It will be used throughout the course of treatment. I was physically present throughout the course of CT simulation. Once again, I discussed with this patient the benefits of prophylactic cranial irradiation and he has chosen to do so. It was delayed over a period of time secondary to his insurance authorization issues. A CT scan of the brain was just done on 05/12/2019 and continued to confirm no evidence of intracranial metastases.
== END 2019-06-22 ==
LOC: M ONCR 10:36
PROVIDERS: ATTEND Radiology Radiation Oncology
DX: C34.12 Malignant neoplasm of upper lobe, left bronchus or lung (principal)

== ENCOUNTER → 2019-06-22 | Outpatient (REF) | payer OTHER ==
[~2019-06-22] MED LIST changes: +DEXA2TA PO
[2019-06-22 18:29] LABS: HEMOGLOBIN A1c 6.7 %
[2019-06-22 18:41] LABS: ALBUMIN 3.6 GM/DL (3.2-5.2); ALT/SGPT 21 U/L (12-78); BILIRUBIN,TOTAL 0.4 MG/DL (0.2-1.0); BLOOD UREA NITROGEN 18 MG/DL (7-18); CALCIUM LEVEL 9.1 MG/DL (8.8-10.2); CARBON DIOXIDE LEVEL 28 MEQ/L (21-32); CHLORIDE LEVEL 104 MEQ/L (98-107); CHOLESTEROL LEVEL 258 MG/DL (<200); CHOLESTEROL RISK RATIO 6.292 (<5); CREATININE FOR GFR 0.76 MG/DL (0.70-1.30); GLOMERULAR FILTRATION RATE > 60.0 (>49); GLUCOSE, FASTING 84 MG/DL (70-100); HDL CHOLESTEROL 41 MG/DL (>40); LDL CHOLESTEROL 191 MG/DL (<100); NON-HDL-C 217 MG/DL; POTASSIUM SERUM 4.2 MEQ/L (3.5-5.1); SODIUM LEVEL 139 MEQ/L (136-145); TOTAL PROTEIN 6.9 GM/DL (6.4-8.2); TRIGLYCERIDES LEVEL 132 MG/DL (<150)
[2019-06-22 18:55] LABS: MAU/CREAT RATIO 10.9 MCG/MG (0.0-30.0)
== END ==
LOC: M SFHCPLAZ 15:03
PROVIDERS: ATTEND Nurse Practitioner Family
DX: E11.69 Type 2 diabetes mellitus with other specified complication (principal); E78.5 Hyperlipidemia, unspecified

== ENCOUNTER 2019-07-10 10:15 | Outpatient (RCR) | payer OTHER ==
--- NOTE | 2019-07-04 11:37 | RADONC ---
RADIATION ONCOLOGY PROGRESS NOTE DATE OF SERVICE: 07/03/2019 CHART NUMBER: [id number] PROGRESS NOTE: Mr. Chew is presently at a dose of 1250 cGy to his brain and is tolerating treatments quite well at this point with no significant difficulties related to his radiation therapy. He does have some occasional headaches, but he is using his Decadron. In addition, he had some stomach upset after eating popcorn this weekend. REVIEW OF SYSTEMS: The patient's review of systems is positive for the above but is otherwise noncontributory. He denies nausea, vomiting, fevers, chills, night sweats, diplopia, headaches, anxiety or depression, anorexia, weight loss, visual disturbances, chest pain, urinary or bowel difficulties, bone pain, or neurological problems. PHYSICAL EXAMINATION: The patient's skin is in good condition with no evidence of radiation change present. The remainder of his physical exam remains unchanged, as well. Mr. Chew is tolerating treatments quite well, and radiation will continue as scheduled.
--- NOTE | 2019-07-12 08:46 | RADONC ---
RADIATION ONCOLOGY TREATMENT SUMMARY DATE: 07/10/2019 CHART #: [id number] DIAGNOSIS: Small cell lung carcinoma. STAGE: Limited, II B, T2b, N0, M0. ECOG PERFORMANCE STATUS: 0. TREATMENT SUMMARY: Mr. Chew is very pleasant 64-year-old white male with the diagnosis of a limited stage small-cell lung carcinoma who presented to us for consideration of prophylactic cranial irradiation. We treated the patient to his brain for a total dose of 2500 cGy delivered in 10 fractions of 250 cGy each over 13 elapsed days from 06/27/2019 through 07/10/2019. The patient's brain was treated on the linear accelerator utilizing a 6 X photon beam via parallel opposed lateral butler. Mr. Chew tolerated his treatments quite well and completed therapy without difficulties. The patient has been given a Decadron taper schedule and is scheduled see me again in 1 month for further followup. He will also continue to be followed by his other physicians as well. cc: YAS Gómez MD Robert Johnson, MD Lawrence G. Kramer, MD
== END 2019-07-23 ==
LOC: M ONCR 10:15
PROVIDERS: ATTEND Radiology Radiation Oncology
DX: C34.12 Malignant neoplasm of upper lobe, left bronchus or lung (principal)

== ENCOUNTER → 2019-08-02 | Outpatient (CLI) | payer OTHER ==
--- NOTE | 2019-08-02 15:31 | REP ---
CHEST, TWO VIEWS: Two views of the chest are performed and compared to multiple prior studies. 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 I see no acute infiltrate or pulmonary edema. The heart is not enlarged. Right central venous catheter is noted with the tip of the junction in the superior vena cava and right atrium. There are degenerative changes of the spine. IMPRESSION: Post radiation fibrosis with no evidence of acute pulmonary disease. Electronically Signed by Mario Somers MD 08/03/2019 11:49 A
--- NOTE | 2019-08-03 09:42 | ECHO ---
DATE OF PROCEDURE: 08/02/2019 REFERRING PHYSICIAN: Dr. Eddie Mcdaniels INDICATION: Peripheral edema, questionable pericardial effusion. HEIGHT: 170 cm WEIGHT: 123 kg DIMENSIONS: RV: 3.5 IVC: 1.3 LV 5.0 LVPW: 1.3 Aorta: 4.0 LA: 3.6 Mitral E wave velocity: 86, E wave: 96 E prime septal: 5.3 E prime lateral: 8.2 FINDINGS: The study is of acceptable technical quality. The patient is in sinus rhythm. Normal LV size with mild left ventricular hypertrophy (LVH) and preserved LV systolic function. No segmental wall motion abnormalities are appreciated. I estimate ejection fraction (EF) around 60%. Right ventricle does not appear dilated and is normally contractile. Left atrium appears normal. Right atrium was relatively poorly seen but also appears normal. All four cardiac valves were reasonably well seen and appear normal. No pericardial effusion is noted. Inferior vena cava is normal size and appropriately collapses with inspiration indicative of likely normal central venous pressure. Aortic root appears normal. Aortic arch was not well visualized. Abdominal aorta appears normal. Doppler interrogation of aortic valve reveals no stenosis and trace insufficiency. Mitral valve is functionally competent. There is trace tricuspid insufficiency. Calculated pulmonary artery pressure is in 20s based on fair quality TR jet. Pulmonic valve is also functionally competent. Mitral inflow pattern and tissue Doppler imaging of mitral annulus reveal grade 1 diastolic dysfunction. CONCLUSION: 1. Study is of acceptable technical quality, the patient is in sinus rhythm. 2. Normal LV size with mild LVH with preserved LV systolic function and grade 1 diastolic dysfunction. 3. No significant valvular disease. 4. Likely normal central venous pressure and normal pulmonary artery pressure. COMMENTS: Subacute bacterial endocarditis (SBE) prophylaxis is not recommended. The study does not provide explanation for significant peripheral edema.
== END ==
LOC: M CARPUL 14:20
PROVIDERS: ATTEND Internal Medicine Pulmonary Disease
DX: R60.1 Generalized edema (principal)

== ENCOUNTER → 2019-08-03 | Outpatient (REF) | payer OTHER ==
[2019-08-03 17:41] LABS: ALBUMIN 3.2 GM/DL (3.2-5.2); ALT/SGPT 49 U/L (12-78); BILIRUBIN,TOTAL 0.8 MG/DL (0.2-1.0); BLOOD UREA NITROGEN 17 MG/DL (7-18); CALCIUM LEVEL 8.7 MG/DL (8.8-10.2); CARBON DIOXIDE LEVEL 28 MEQ/L (21-32); CHLORIDE LEVEL 105 MEQ/L (98-107); CREATININE FOR GFR 0.67 MG/DL (0.70-1.30); GLOMERULAR FILTRATION RATE > 60.0 (>49); GLUCOSE, FASTING 123 MG/DL (70-100); SODIUM LEVEL 139 MEQ/L (136-145); TOTAL PROTEIN 6.4 GM/DL (6.4-8.2)
== END ==
LOC: M LAB REF 16:33
PROVIDERS: ATTEND Internal Medicine Pulmonary Disease
DX: R60.1 Generalized edema (principal)

== ENCOUNTER → 2019-08-14 | Outpatient (CLI) | payer OTHER ==
[~2019-08-14] MED LIST changes: +ISOVUE-370 76% 100ML VIAL As Ordered ONE
--- NOTE | 2019-08-14 16:45 | REP ---
REASON: Followup lung cancer. All priors reviewed, the latest 04/04/2019. CONTRAST: 100 mL Isovue 370. There is no significant change in the appearance of the mediastinum or pulmonary michael. There are no pleural or pericardial effusions. There is no significant change in the appearance of the imaged upper abdomen or imaged osseous structures. Evaluation of the lung butler shows new areas of irregularity and spiculation in the left upper and lower lobe regions. These regions are causing tenting traction of the pleural reflections and irregular pleural thickening. Seen in the left upper lobe, the spiculated nodule is unchanged as the predominant spiculated nodule. There are no right lung changes. IMPRESSION: 1. Left lung changes as described above, possibly a continuum of postradiation change, however, I cannot completely exclude the possibility of a new spiculated lung nodule. Correlation with PET/CT is advised so as it can be compared to the PET/CT of 05/08/2019. 2. Other findings as described above. Electronically Signed by Logan Martinez DO 08/14/2019 04:53 P
== END ==
LOC: M RAD 12:52
PROVIDERS: ATTEND Internal Medicine Medical Oncology
DX: C34.92 Malignant neoplasm of unspecified part of left bronchus or lung (principal)
CPT/HCPCS: 71260; Q9967

== ENCOUNTER → 2019-08-14 | Outpatient (CLI) | payer OTHER ==
[~2019-08-14] MED LIST changes: -ISOVUE-370 76% 100ML VIAL As Ordered ONE
--- NOTE | 2019-08-15 02:11 | REP ---
DEEP VENOUS ULTRASONOGRAPHY BILATERAL THIGHS, RULE OUT DVT: REASON: Bilateral pain and swelling. TECHNIQUE: Multiple ultrasonographic images of the deep venous structures of the thigh were obtained from the common femoral vein to the popliteal vein along with Doppler interrogation and color flow Doppler images. FINDINGS: There is no abnormal echogenic material seen within any of the visualized deep venous structures that would suggest acute thrombosis. Coaptation is unremarkable throughout. Doppler interrogation shows an expected response to respiratory variability and augmentation. The color flow images show what appears to be a normal vascular pattern throughout. IMPRESSION: There is no ultrasonographic evidence of deep venous thrombosis involving any of the visualized deep venous structures of the bilateral thighs, as described above.
== END ==
LOC: M WHC 14:14
PROVIDERS: ATTEND Internal Medicine Pulmonary Disease
DX: R60.1 Generalized edema (principal)

== ENCOUNTER → 2019-08-16 | Outpatient (CLI) | payer OTHER ==
--- NOTE | 2019-08-20 15:20 | RADONC ---
RADIATION ONCOLOGY DATE: 08/16/2019 CHART NUMBER: [id number] DIAGNOSIS: Small cell lung cancer. STAGE: Limited stage II B, T2b N0 M0. ECOG PERFORMANCE STATUS: 0 Mr. Chew is a 64-year-old gentleman who carries the diagnosis of limited stage small cell lung cancer. He completed thoracic RT simultaneously with chemotherapy and he completed radiation therapy on 01/26/2019. He also completed PCI on 07/10/2019. This is a teleconference. He said he has no headache, visual problems. However, his depth perception is off and he has some balancing issues which started after the radiation therapy. He tapered Decadron completely. He also said he has bilateral leg and feet swelling. It was worked for deep venous thrombosis. He had a CT of the chest on 08/14/2019 which showed there is a new area of irregularity and spiculation in the left upper and lower lobe regions. These regions are causing tenting traction of pleural reflections and irregular pleural thickening, possibly a continuum of the postradiation changes. However, cannot completely exclude the possibility of a new spiculated lung lesion. Correlation with PET/CT is advised, which I informed the patient. Also advised to discuss with Dr. Lew. I advised continuous followup care with the physicians involved and he was advised to return here in 3 months or sooner. At that time, depending on the symptoms, he may need evaluation of brain. MALKA
== END ==
LOC: M ONCR 10:33
PROVIDERS: ATTEND Radiology Radiation Oncology
DX: C34.12 Malignant neoplasm of upper lobe, left bronchus or lung (principal)

== ENCOUNTER → 2019-08-21 | Outpatient (CLI) | payer OTHER ==
[~2019-08-21] MED LIST changes: +LIDOCAINE 1% MDV 20ML VIAL As Ordered ONE; +MIDAZOLAM INJ 2MG/2ML VIAL (J2250 PER 1MG) As Ordered ONE; +ceFAZolin 1GM VIAL (J0690 PER 500MG) As Ordered ONE; +diphenhydrAMINE 50MG/ML VIAL (J1200) As Ordered ONE; +fentaNYL 100 MCG/2 ML INJECTION (J3010) As Ordered ONE
[2019-08-21 14:25] VITALS: BP 174/84
--- NOTE | 2019-08-21 14:45 | REP ---
IR Port removal. IR Moderate sedation. Clinical information: Lung cancer. Physician: Dr. Rich. Procedure: The patient was advised of the benefits, risks and alternatives of the procedure and informed consent was obtained. The time-out was performed with verification of the patient's name, MRN, site of procedure and type of procedure to be performed. The patient was positioned in the supine position on the angiographic table. The site was prepped and draped in the usual sterile fashion. Moderate sedation was performed by the physician including the presence of an independent trained observer who assisted and monitored the patient's level of consciousness and physiologic status. Following the administration of fentanyl and Versed , the physician spent 30 minutes of continuous face to face time with the patient. A information technology associate radiograph reveals a right-sided port in place. The soft tissues overlying the port pocket were anesthetized with lidocaine. An incision was made over the port using an 15 blade scalpel in the location of the prior incision. The catheter was then freed with blunt dissection and extracted. Pressure was applied to obtain hemostasis. The port was then freed with blunt dissection and subsequently removed. There are no signs of infection. After hemostasis was achieved, the incision was closed with interrupted deep 2-0 Vicryl sutures and subcuticular Monocryl sutures. The site was cleansed and covered with a sterile dressing. A follow-up radiograph demonstrates complete removal of the port. The patient tolerated the procedure well and was returned to PRU in stable condition. EBL: < 5 ml. Complications: None. Conclusion: 1. Successful explant of a right sided port. 2. No signs of infection. Thank you this referral. Electronically Signed by Chery Rich MD 08/21/2019 02:43 P
--- NOTE | 2019-08-21 14:50 | POST-OPPD ---
Postoperative Procedure Note Date Of Procedure: Aug 21, 2019 Time Of Procedure: 14:50 Please see full report under imaging tab; study name guidance fluoroscopy or CT guidance or US guidance. MICHELLE BUTLER MD Aug 21, 2019 14:50
--- NOTE | 2019-08-21 14:50 | IRHP ---
[facility] IR Pre-Procedure H & P General Date of Service: Aug 21, 2019 Procedure: Same Day Surgery Interval History and Physical I have seen the patient and reviewed last H & P performed within 30 days. There is no significant interval change. History of Present Illness Chief Complaint The patient is a 64-year-old male admitted with a reason for visit of Lung Ca. PRE-PROCEDURE DIAGNOSIS:lung ca HEART: normal rate. LUNGS: normal breathing at rest. ASA Classification ASA Classification: III-Severe systemic dis. Mallampati Score: II NPO: Yes Problems with prior sedation: No Obstructive Sleep Apnea: No Plan moderate sedation Allergies Coded Allergies: TAPE (Verified Allergy, Mild, blistering skin on contact area, 08/17/19) Blueberry (Verified Allergy, Unknown, 10/03/18) wool (Verified Allergy, Unknown, 10/03/18) Home Medications Scheduled Aspirin (Aspir 81), 81 MG PO DAILY, (Reported) Atorvastatin Calcium (Atorvastatin Calcium), 40 MG PO DAILY, (Reported) Esomeprazole Magnesium (Nexium), 20 MG PO DAILY, (Reported) Fish Oil/Borage/Flax/Om3,6,9 1 ([place] 3-6-9 Complex Softgel), 1 CAP PO DAILY, (Reported) Multivitamin (Multivitamins), 1 CAP PO DAILY, (Reported) Olodaterol HCl (Striverdi Respimat), 2.5 MCG IN DAILY, (Reported) Scheduled PRN Albuterol Sulfate (Proair Hfa), 2 PUFF INH Q4HP PRN for SOB/WHEEZING, (Reported) Discontinued Medications Dexamethasone (Dexamethasone), 1 TAB PO BID Discontinued Reason: Pt states not taking Lisinopril (Lisinopril), 10 MG PO DAILY, (Reported) Discontinued Reason: Pt states not taking Loratadine (Claritin), 10 MG PO DAILY, (Reported) Discontinued Reason: Pt states not taking Metformin HCl (Metformin HCl), 500 MG PO BID, (Reported) Discontinued Reason: Pt states not taking Silver Sulfadiazine (Silvadene), 400 GRAMS EXT TID Discontinued Reason: Pt states not taking VS, I&O, 24H, Fishbone Vital Signs/I&O Vital Signs Date Time Temp Pulse Resp B/P (MAP) Pulse Ox O2 Delivery O2 Flow Rate FiO2 08/21/19 14:25 90 18 100 Room Air 08/21/19 12:50 2 08/21/19 11:39 99 MICHELLE BUTLER MD Aug 21, 2019 14:50
== END ==
LOC: M IRPRO 11:31
PROVIDERS: ATTEND Radiology Diagnostic Radiology
DX: Z45.2 Encounter for adjustment and management of vascular access device (principal); C34.90 Malignant neoplasm of unspecified part of unspecified bronchus or lung; Z79.82 Long term (current) use of aspirin; Z79.899 Other long term (current) drug therapy; Z91.018 Allergy to other foods; Z91.048 Other nonmedicinal substance allergy status; Z91.09 Other allergy status, other than to drugs and biological substances

== ENCOUNTER → 2019-08-29 | Outpatient (CLI) | payer OTHER ==
[~2019-08-29] MED LIST changes: -ASPI81TA85 PO; +ASPI81TA86 PO; +BACT400T PO; -LIDOCAINE 1% MDV 20ML VIAL As Ordered ONE; -MIDAZOLAM INJ 2MG/2ML VIAL (J2250 PER 1MG) As Ordered ONE; +OXYC1TAB23 PO; -STRI1AER2 IN; +STRI1AER2 INH; -ceFAZolin 1GM VIAL (J0690 PER 500MG) As Ordered ONE; -diphenhydrAMINE 50MG/ML VIAL (J1200) As Ordered ONE; -fentaNYL 100 MCG/2 ML INJECTION (J3010) As Ordered ONE
--- NOTE | 2019-08-30 08:31 | REP ---
REASON: Followup. COMPARISON: PET-CT 05/08/2019 and 10/25/2018, previous chest CT 08/14/2019. The patient has as history of small cell lung carcinoma. After the intravenous administration of 9.2 millicuries of FDG-18, triplane whole body PET-CT was performed from the skull base to the mid thigh. There is no abnormal hypermetabolic activity seen in the neck, chest, abdomen, or pelvis. The opacity seen on the previous chest CT in the left lung are non-hypermetabolic. There is incidental hypermetabolic activity seen in the masseter muscle bilaterally. IMPRESSION: Negative PET-CT. Electronically Signed by Logan Martinez DO 08/30/2019 09:36 A
== END ==
LOC: M PLARAD 10:33
PROVIDERS: ATTEND Internal Medicine Medical Oncology
DX: C34.12 Malignant neoplasm of upper lobe, left bronchus or lung (principal)
CPT/HCPCS: 78815; A9552

== ENCOUNTER 2019-09-04 14:52 | Inpatient (IN) | payer OTHER ==
[~2019-09-04] VITALS: Ht 170.2 cm; Wt 119.0 kg
[2019-09-04 00:30] VITALS: BP 129/76
[~2019-09-04 14:52] MED LIST changes: +ASPI81TA85 PO; -ASPI81TA86 PO; -BACT400T PO; -OXYC1TAB23 PO
[2019-09-04] MEDS ORDERED: NS 1,000 ML IV ONE (15:30)
[2019-09-04 15:57] LABS: BASO # 0.1 10^3/uL (0.0-0.2); BASO % 0.4 % (0.0-1.0); EOS # 0.1 10^3/uL (0.0-0.5); EOS % 1.1 % (0.0-3.0); HEMOGLOBIN 13.9 g/dl (13.5-17.5); LYMPH # 0.7 10^3/uL (1.5-5.0); LYMPH % 6.2 % (24.0-44.0); MEAN CORPUSCULAR HEMOGLOBIN 28.4 pg (27.0-33.0); MEAN CORPUSCULAR HGB CONC 33.1 g/dl (32.0-36.5); MEAN CORPUSCULAR VOLUME 85.7 fl (80.0-96.0); MONO # 1.4 10^3/uL (0.0-0.8); MONO % 11.6 % (0.0-5.0); NEUTROPHILS # 9.6 10^3/uL (1.5-8.5); NEUTROPHILS % 79.8 % (36.0-66.0); PLATELET COUNT, AUTOMATED 219 10^3/uL (150-450)
[2019-09-04 16:17] LABS: ALBUMIN 3.7 GM/DL (3.2-5.2); ALT/SGPT 26 U/L (12-78); AMYLASE 55 U/L (25-115); BILIRUBIN,DIRECT 0.2 MG/DL (0.0-0.2); BILIRUBIN,TOTAL 0.7 MG/DL (0.2-1.0); BLOOD UREA NITROGEN 9 MG/DL (7-18); CALCIUM LEVEL 9.3 MG/DL (8.8-10.2); CARBON DIOXIDE LEVEL 26 MEQ/L (21-32); CHLORIDE LEVEL 107 MEQ/L (98-107); GLOMERULAR FILTRATION RATE > 60.0 (>49); GLUCOSE, FASTING 103 MG/DL (70-100); LIPASE 127 U/L (73-393); POTASSIUM SERUM 3.9 MEQ/L (3.5-5.1); SODIUM LEVEL 142 MEQ/L (136-145)
[2019-09-04] MEDS ORDERED: MORPHINE 4 MG/ML 1ML VIAL/SYRINGE (J2270) IV ONE (17:00)
--- NOTE | 2019-09-04 17:35 | REPVR ---
PROCEDURE INFORMATION: Exam: US Abdomen, Limited; Right Upper Quadrant Exam date and time: 09/04/2019 5:20 PM Age: 64 years old Clinical indication: Abdominal pain; Additional info: Epigastric post prandial pain TECHNIQUE: Imaging protocol: US abdomen. Real time ultrasound with image documentation. Limited exam focused on the right upper quadrant. COMPARISON: 1. GALLBLADDER US 10/10/2018 7:27 AM 2. PT - PET/CT Skull/mid thigh 08/29/2019 12:11:01 PM FINDINGS: Limitations: Technically limited study due to patient body habitus and shadowing bowel gas. Liver: Hepatic parenchyma is heterogeneous without focal lesion. Question mild fatty liver change. Gallbladder: The gallbladder is normal, with no gallstones, sludge, pericholecystic fluid, or sonographic Winston sign. Gallbladder wall thickness is 2 mm. Common bile duct: Common bile duct is mildly dilated at 8 mm. Only a short segment of the common bile duct was able to be visualized, limiting evaluation for choledocholithiasis. Pancreas: The pancreas is poorly visualized because of shadowing bowel gas. Right kidney: The right kidney is normal in size, measuring 12.1 x 5.3 by 5.3 cm. No focal air abnormal echogenicity in the right kidney. No hydronephrosis. Intraperitoneal space: No free fluid. IMPRESSION: 1. Mildly dilated common bile duct at 8 mm, of uncertain etiology. Only a short segment of the common bile duct was able to be visualized, limiting evaluation for choledocholithiasis. The dimension of the common bile duct is similar to slightly decreased from 08/29/2019 and similar to slightly decreased compared to 10/10/2018. 2. No cholelithiasis or evidence of cholecystitis. 3. Question mild fatty liver change. Electronically signed by: Geeta Montemayor On 09/04/2019 17:35:26 PM
[2019-09-04] MEDS ORDERED: ONDANSETRON 4MG/2ML VIAL IV ONE (17:45)
[2019-09-04] MEDS ORDERED: cefTRIAXone SOD 1 GM in D5W MINI-BAG PLUS 50 ML IV ONE (18:15)
[2019-09-04 18:46] LABS: C REACTIVE PROTEIN QUANTITATIV 0.44 MG/DL (0.00-0.30)
--- NOTE | 2019-09-04 19:32 | SMCUROLCON ---
Urology Consultation General Date of Consultation 09/04/19 Reason For Consultation This patient is seen for Scrotal Abscess. History of Present Illness This is a 64 y/o M w/ a PMH significant for small cell lung Ca s/p recent chemotherapy and prophylactic brain XRT, HTN, HL, GERD, MARIAMA, COPD, DM2, and scrotal abscess s/p I&D in 2018, presenting w/ a 4-5 day history of progressively worsening L scrotal swelling and pain. He notes that swelling is in the area of the scar from his previous I&D. He also notes that he started draining pus from a small skin opening today. He denies fevers or chills. He n otes that the area is significantly tender. He has no voiding complaints. Past Medical History Medical History see HPI Surgical Hstory see HPI Medications Current Medications Current Medications Medications (Trade) Dose Ordered Sig/Alex Route PRN Reason Start Time Stop Time Status Last Admin Dose Admin Ceftriaxone Sodium 2 gm/ Dextrose 50 ml @ 100 mls/hr Q24H IV 09/05/19 09:00 Dextrose/Sodium Chloride 1,000 ml @ 100 mls/hr Q10H IV 09/04/19 18:21 Allergies Allergies: Coded Allergies: TAPE (Verified Allergy, Mild, blistering skin on contact area, 08/17/19) Blueberry (Verified Allergy, Unknown, 10/03/18) wool (Verified Allergy, Unknown, 10/03/18) Review of Systems Constitutional: Denies: Fever, Chills, Sweats, Weakness, Malaise Pulmonary: Denies: Dyspnea, Cough Cardiovascular: Denies Chest Pain, Denies Palpitations Gastrointestinal: Denies: Nausea, Vomiting Genitourinary: Reports: Other Symptoms (left scrotal swelling and pain); Denies: Dysuria, Hematuria Musculoskeletal: Denies: Neck Pain, Back Pain Psych: Reports: Mood Normal Physical Examination General Exam: Alert, Cooperative, No Acute Distress Chest Exam: Normal air movement Heart Exam: Regular Rhythm Abdomen Exam: Soft Male Exam circumcised phallus w/o lesions; R testicle descended and normal in size; moderate L scrotal edema just deep to the skin in area of scar from prior I&D; small amount of purulent drainage from this area; no crepitus or skin break down Neuro Exam: Normal Speech Psych Exam: Mental status NL, Mood NL Vital Signs/I&O Vital Signs Date Time Temp Pulse Resp B/P (MAP) Pulse Ox O2 Delivery O2 Flow Rate FiO2 09/04/19 15:34 09/04/19 14:53 98.8 94 16 96 Room Air Laboratory Data 24H Labs Laboratory Tests 2 09/04/19 15:31: Immature Granulocyte % (Auto) 0.9, Neutrophils (%) (Auto) 79.8H, Lymphocytes (%) (Auto) 6.2L, Monocytes (%) (Auto) 11.6H, Eosinophils (%) (Auto) 1.1, Basophils (%) (Auto) 0.4, Neutrophils # (Auto) 9.6H, Lymphocytes # (Auto) 0.7L, Monocytes # (Auto) 1.4H, Eosinophils # (Auto) 0.1, Basophils # (Auto) 0.1, Nucleated Red Blood Cells % (auto) 0.0, Anion Gap 9, Glomerular Filtration Rate > 60.0, Calcium Level 9.3, Total Bilirubin 0.7, Direct Bilirubin 0.2, Aspartate Amino Transf (AST/SGOT) 27, Alanine Aminotransferase (ALT/SGPT) 26, Alkaline Phosphatase 79, C-Reactive Protein, Quantitative 0.44H, Total Protein 7.0, Albumin 3.7, Albumin/Globulin Ratio 1.1, Amylase Level 55, Lipase 127 CBC/BMP Laboratory Tests 09/04/19 15:31 Microbiology Microbiology 09/04/19 Respiratory Virus Panel (PCR) (WILLIAM), Received Pending 09/04/19 Gram Stain, Received Pending 09/04/19 Wound Culture, Received Pending Assessment This is a 64 y/o M w/ a worsening L scrotal abscess. Scrotal US confirms a 10cm abscess. The patient previously had an abscess in the same location drained w/ local anesthetic and this caused him significant pain. I therefore recommended that we take him to the OR to manage this. After a discussion of the risks and benefits, informed consent was signed for incision and drainage of left scrotal abscess. Plan - informed consent signed for I&D of left scrotal abscess - rocephin administered - NPO LORIN BULLARD MD Sep 04, 2019 19:32
[2019-09-04] MEDS ORDERED: MORPHINE 10 MG/ML 1ML VIAL (J2270) IV ONE (19:45)
[2019-09-04] MEDS ORDERED: MORPHINE 30 MG TAB **MSIR PO ONE (19:45)
[2019-09-04] MEDS ORDERED: MORPHINE 4 MG/ML 1ML VIAL/SYRINGE (J2270) IV PRN (20:00)
[2019-09-04] MEDS ORDERED: PILL CUTTER 1 EACH XX PRN (20:00)
[2019-09-04] MEDS ORDERED: MOM 30ML SUSPENSION UDC PO PRN (20:00)
[2019-09-04] MEDS ORDERED: SENOKOT S TAB PO PRN (20:00)
[2019-09-04] MEDS ORDERED: MORPHINE 30 MG TAB **MSIR PO PRN (20:00)
[2019-09-04 20:03] LABS: ERYTHROCYTE SEDIMENTATION RATE 22 mm/hr (0-20)
[2019-09-04] MEDS: D5W/0.45% SODIUM CHLORIDE 1,000 ML IV SCH ×2 (20:12→23:58)
[2019-09-04] MEDS ORDERED: MIDAZOLAM INJ 2MG/2ML VIAL (J2250 PER 1MG) As Ordered ONE (21:59)
[2019-09-04] MEDS ORDERED: PHENYLephrine HCL 500 MCG/5 ML (100MCG/ML) SYRINGE (J2370) As Ordered ONE (22:00)
[2019-09-04] MEDS ORDERED: fentaNYL 100 MCG/2 ML INJECTION (J3010) As Ordered ONE (22:00)
[2019-09-04] MEDS ORDERED: propofoL 200 MG/20 ML VIAL As Ordered ONE (22:00)
[2019-09-04] MEDS ORDERED: ePHEDrine SULFATE 25 MG/5 ML(5MG/ML) SYRINGE As Ordered ONE (22:00)
[2019-09-04] MEDS ORDERED: dexameTHASONE 4 MG/ML 1ML VIAL (J1100 PER 1MG) As Ordered ONE (22:00)
[2019-09-04] MEDS ORDERED: LIDOCAINE 2% 100MG/5ML SDV (FOR ANES.) As Ordered ONE (22:00)
[2019-09-04] MEDS ORDERED: ONDANSETRON 4MG/2ML VIAL As Ordered ONE (22:00)
[2019-09-04] MEDS ORDERED: ACETAMINOPHEN 1000MG 100ML IV BTL (OFIRMEV) (J0131 PER 10MG) As Ordered ONE (22:35)
[2019-09-04] MEDS ORDERED: fentaNYL 100 MCG/2 ML INJECTION (J3010) IV PRN (23:30)
[2019-09-04] MEDS ORDERED: LR 1,000 ML IV SCH (23:30)
[2019-09-04] MEDS ORDERED: ALBUTEROL 90 MCG/ACT 8GM HFA INHALER INH PRN (23:45)
[2019-09-04 23:50] VITALS: BP 133/74
[2019-09-05] VITALS (10 sets, daily range): BP systolic 106–140; BP diastolic 48–82
[2019-09-05] MEDS ORDERED: ONDANSETRON 4MG/2ML VIAL IV PRN
--- NOTE | 2019-09-05 03:46 | REP ---
SCROTAL ULTRASOUND: Real-time sonographic evaluation of scrotum and contents performed. Right testicle measures 3.5 x 2.5 x 1.9 cm and left testicle 3.4 x 1.4 x 2.8 cm. There is no testicular mass or torsion. Multiple areas of complex fluid are seen, appearing loculated, throughout edematous tissue from the base of the penis to the inferior and posterior scrotum. The involved area measures 9.6 x 2.5 x 6.8 cm. IMPRESSION: Phlegmonous change with locules of fluid within an area of inflamed edematous tissue extending from the base of the penis to the inferior posterior scrotum; the area involved measures 9.6 x 2.5 x 6.8 cm. Electronically Signed by Mario Somers MD 09/05/2019 11:57 P
[2019-09-05 06:12] LABS: BASO % 0.3 % (0.0-1.0); EOS % 0.1 % (0.0-3.0); HEMATOCRIT 39.6 % (42.0-52.0); HEMOGLOBIN 13.1 g/dl (13.5-17.5); LYMPH # 0.5 10^3/uL (1.5-5.0); LYMPH % 4.1 % (24.0-44.0); MEAN CORPUSCULAR HEMOGLOBIN 28.4 pg (27.0-33.0); MEAN CORPUSCULAR HGB CONC 33.1 g/dl (32.0-36.5); MEAN CORPUSCULAR VOLUME 85.9 fl (80.0-96.0); MONO # 0.5 10^3/uL (0.0-0.8); MONO % 4.3 % (0.0-5.0); NEUTROPHILS # 10.5 10^3/uL (1.5-8.5); NEUTROPHILS % 90.6 % (36.0-66.0); PLATELET COUNT, AUTOMATED 200 10^3/uL (150-450); RED BLOOD COUNT 4.61 10^6/uL (4.30-6.10); WHITE BLOOD COUNT 11.6 10^3/uL (4.0-10.0)
[2019-09-05 06:33] LABS: ALBUMIN 3.1 GM/DL (3.2-5.2); ALT/SGPT 20 U/L (12-78); BILIRUBIN,TOTAL 0.6 MG/DL (0.2-1.0); BLOOD UREA NITROGEN 7 MG/DL (7-18); CALCIUM LEVEL 8.8 MG/DL (8.8-10.2); CARBON DIOXIDE LEVEL 27 MEQ/L (21-32); CHLORIDE LEVEL 108 MEQ/L (98-107); CREATININE FOR GFR 0.78 MG/DL (0.70-1.30); GLOMERULAR FILTRATION RATE > 60.0 (>49); GLUCOSE, FASTING 198 MG/DL (70-100); SODIUM LEVEL 140 MEQ/L (136-145); TOTAL PROTEIN 6.7 GM/DL (6.4-8.2)
--- NOTE | 2019-09-05 08:14 | IPNPDOC ---
Subjective Review oF Systems Chief Complaint The patient is a 64-year-old male admitted with a reason for visit of Scrotal Abscess. Events since Last Encounter No acute events o/n. Good pain control. No n/v. Has no ambulated since surgery. No f/c/ns. Objective Physical Examination General Exam: Alert, Cooperative, No Acute Distress Skin Exam: Nl turgor and temperature Neuro Exam: Normal Speech Psych Exam: Mental status NL, Mood NL Other physical findings left hemiscrotal incision w/ beefy red tissue and no active drainage, mild erythema, less tender to touch than prior to surgery Vital Signs/I&O Vital Signs Date Time Temp Pulse Resp B/P (MAP) Pulse Ox O2 Delivery O2 Flow Rate FiO2 09/05/19 06:00 98.1 70 19 129/76 (93) 95 Nasal Cannula 2.0 I&O- Last 24 Hours up to 6 AM 09/05/19 05:59 Intake Total 1820 ml Output Total 400 ml Balance 1420 ml Laboratory Data Labs 24H Laboratory Tests 2 09/04/19 15:31: Immature Granulocyte % (Auto) 0.9, Neutrophils (%) (Auto) 79.8H, Lymphocytes (%) (Auto) 6.2L, Monocytes (%) (Auto) 11.6H, Eosinophils (%) (Auto) 1.1, Basophils (%) (Auto) 0.4, Neutrophils # (Auto) 9.6H, Lymphocytes # (Auto) 0.7L, Monocytes # (Auto) 1.4H, Eosinophils # (Auto) 0.1, Basophils # (Auto) 0.1, Nucleated Red Blood Cells % (auto) 0.0, Erythrocyte Sedimentation Rate 22H, Anion Gap 9, Glomerular Filtration Rate > 60.0, Calcium Level 9.3, Total Bilirubin 0.7, Direct Bilirubin 0.2, Aspartate Amino Transf (AST/SGOT) 27, Alanine Aminotransferase (ALT/SGPT) 26, Alkaline Phosphatase 79, C-Reactive Protein, Quantitative 0.44H, Total Protein 7.0, Albumin 3.7, Albumin/Globulin Ratio 1.1, Amylase Level 55, Lipase 127 09/05/19 05:54: Immature Granulocyte % (Auto) 0.6, Neutrophils (%) (Auto) 90.6H, Lymphocytes (%) (Auto) 4.1L, Monocytes (%) (Auto) 4.3, Eosinophils (%) (Auto) 0.1, Basophils (%) (Auto) 0.3, Neutrophils # (Auto) 10.5H, Lymphocytes # (Auto) 0.5L, Monocytes # (Auto) 0.5, Eosinophils # (Auto) 0.0, Basophils # (Auto) 0.0, Nucleated Red Blood Cells % (auto) 0.0, Anion Gap 5L, Glomerular Filtration Rate > 60.0, Calcium Level 8.8, Total Bilirubin 0.6, Aspartate Amino Transf (AST/SGOT) 19, Alanine Aminotransferase (ALT/SGPT) 20, Alkaline Phosphatase 73, Total Protein 6.7, Albumin 3.1L, Albumin/Globulin Ratio 0.9, Triglycerides Level 89, Total Cholesterol 140, LDL Cholesterol 87, Non-HDL Cholesterol (LDL + VLDL) 105, Total HDL Cholesterol 35L, Cholesterol/HDL Ratio 4.000 CBC/BMP Laboratory Tests 09/04/19 15:31 09/05/19 05:54 Microbiology Microbiology 09/04/19 Gram Stain, Received Pending 09/04/19 Abscess Culture, Received Pending 09/04/19 Anaerobic Culture, Received Pending 09/04/19 Respiratory Virus Panel (PCR) ([facility]) - Final, Complete 09/04/19 Gram Stain, Received Pending 09/04/19 Wound Culture, Received Pending Assessment/Plan Date Seen The patient was seen on 09/05/19. Patient Summary This is a 64 y/o M POD1 s/p I&D of left scrotal abscess. WBC 11.6. Afebrile. Plan/VTE VTE Prophylaxis Ordered?: Yes VTE Exclusion Mechanical Proph: N/A:VTE Prophy Ordered Plan - continue broad spectrum abx - f/u intraop cultures and adjust abx as needed - bid wet to dry dressing changes - ambulate - likely ok for discharge home tomorrow if patient tolerates dressing changes well and continues to improve clinically LORIN BULLARD MD Sep 05, 2019 08:14
[2019-09-05] MEDS: PANTOPRAZOLE 20 MG TAB PO SCH (09:02)
[2019-09-05] MEDS: OMEGA-3 1000MG CAPSULE PO SCH (09:02)
[2019-09-05] MEDS: cefTRIAXone SOD 2 GM in D5W MINI-BAG PLUS 50 ML IV SCH (09:02)
[2019-09-05] MEDS: ATORVASTATIN 20 MG TAB PO SCH (09:02)
--- NOTE | 2019-09-05 13:30 | HPE ---
DATE OF ADMISSION: 09/04/2019 CHIEF COMPLAINT: Scrotal pain, swelling and tenderness. HISTORY OF PRESENT ILLNESS: 64-year-old male with history of scrotal abscess, incised, drained and treated with oral antibiotics at the urology clinic years ago who now presents with three week history of increasing left sided scrotal edema, redness and tenderness. The patient says that there has been some purulent drainage of the left side from the original incision. He denies any fever or chills at home. No medications over the counter were taken. The patient only takes a baby aspirin. He also complains of "trouble in my stomach" on and off for the past one week, epigastric in area with no radiation. Unable to eat, but no weight loss. The patient had similar episodes before when he was diagnosed with pancreatitis. He describes the pain as ache and dull, sharp at times, on and off. He has no vomiting, but had episodes of nausea. The patient denies any dysuria, urgency, frequency, or flank pain. In the ER, he was found to have a scrotal abscess, white count of 12,000 and the hospitalist was asked to admit him for scrotal abscess and he was made nothing by mouth (n.p.o.) in order to do incision and drainage in the operating room by Dr. White. Imaging study included scrotal ultrasound with on official reading. Gallbladder ultrasound to further evaluate the patient's epigastric pain showed uncertain etiology of a mildly dilated common bile duct (CBD), no cholelithiasis or evidence of cholecystitis and fatty liver change. REVIEW OF SYSTEMS: All other systems are otherwise negative. 12 point system has been obtained. PAST MEDICAL HISTORY: 1. Scrotal abscess. 2. Hypertension. 3. Hyperlipidemia. 4. 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 5. Diabetes. 6. Reflux. 7. Hiatal hernia. 8. Pancreatitis. 9. Nicotine dependence. 10. Obesity. 11. Obstructive sleep apnea. 12. Sessile, ulcerated and adenomatous polyps. 13. Mild chronic obstructive pulmonary disease. ALLERGIES: - WOOL - BLUEBERRIES - PRAVASTATIN PAST SURGICAL HISTORY: 1. Incision and drainage of scrotal abscess. 2. Sinus surgery. 3. Arm fracture. 4. Polyp resection with colonoscopy - hyperplastic, sessile, ulcerated adenomatous polyps by Dr. Lopez in 2014. 5. Hiatal hernia. HOME MEDICATIONS: - aspirin 81 daily - fish oil one capsule daily - multivitamin one tablet daily - Striverdi Respimat 2 puffs inhaled daily - albuterol as needed - atorvastatin 40 daily - Nexium 20 mg daily SOCIAL HISTORY: The patient smokes about 10-20 cigarettes a day. Drives a cab. Previously smoked 2-3 packs per day since the age of 14. Denies any alcohol active use. No recreational drug use. Code status is a full code. FAMILY HISTORY: Father with cancer. Mother with diabetes at age of 50. Sister with uterine cancer and diabetes. REVIEW OF SYSTEMS: 12 point system negative aside from positive findings on HPI. PHYSICAL EXAMINATION: Temperature 97.1, pulse 71, respiratory rate 18, blood pressure 140/79, 97% on room air. Generally, the patient is awake, alert, oriented times three, answering questions appropriately. No jugular venous distention or thyromegaly. No cervical lymphadenopathy. Thick neck. Lungs are clear to auscultation. No wheezing, rales or rhonchi. Air entry is equal. No scoliosis. The patient has no respiratory distress. No use of respiratory accessory muscles. No pallor or cyanosis. Heart: S1, S2. Sinus rhythm. No murmurs, rubs or gallops. Abdomen: Obese. Soft. Slightly tender epigastric and right upper quadrant with no rebound or guarding. Positive bowel sounds times four quadrants. No abdominal bruits. Scrotum on left has some serosanguineous drainage with significant erythema and tenderness and bilateral femoral lymphadenopathy. Extremities: No cyanosis or clubbing. LABORATORY DATA: White count 12, hemoglobin 13, hematocrit 42, platelet count 219. Sodium 142, potassium 3.9, chloride 107, bicarbonate 26, BUN 9, creatinine 0.8, glucose 103, calcium 9.3, total bilirubin 0.7, direct bilirubin 0.2, AST 27, ALT 26, alkaline phosphatase 79, CRP 0.44, total protein 7, albumin 3.7, lipase 127. ASSESSMENT AND PLAN: This is a 64-year-old male with history of pancreatitis in the past who presents with biliary colic and scrotal abscess with prior history of scrotal abscess incised and drained and given oral antibiotic as outpatient several years ago. He now presents with three week history of worsening erythema and swelling, worse in the past one and a half to two weeks with drainage of the original incision site. IMPRESSION: 1. Scrotal abscess. The patient is currently n.p.o. and given IV Ceftriaxone. Wound culture and sensitivity to be sent. The patient's urologist will be taking him to the operating room for incision, drainage and debridement if needed. Monitor patient's CBC. Monitor for fevers. 2. Biliary colic. The patient does not have any significant liver function test abnormalities. He says that he is currently pain free, slightly nauseous. He is given antiemetics. Currently n.p.o. status with IV fluids. Monitor liver function tests and further symptoms. 3. Obesity. Body mass index (BMI) of 41. Obstructive sleep apnea protocol. High risk for hypercapnic respiratory failure. No formal study in the past. To rule out obstructive sleep apnea. Continue to monitor on opioids and continuous pulse oximetry overnight. 4. Hypertension. May resume on home medications. 5. Dyslipidemia. Continue on Lipitor. Check lipid panel in the morning. 6. History of hiatal hernia with reflux. Continue on Prilosec. 7. Mild chronic obstructive pulmonary disease. Nebulizer treatments as needed. 8. Medical clearance. Patient is medically stable to proceed to surgery. 9. Code status. Full code.
[2019-09-05] MEDS: D5W/0.45% SODIUM CHLORIDE 1,000 ML IV SCH ×2 (14:21→21:02)
--- NOTE | 2019-09-05 18:29 | IPNPDOC ---
Date Seen The patient was seen on 09/05/19. Progress Note Pt c/o mild discomfort around scrotal incision site. No new complaint PHYSICAL EXAMINATION: GENERAL: comfortable HEENT: oral mucosa moist CARDIOVASCULAR: regular rate and rhythm RESPIRATORY: clear to auscultation ABDOMINAL: soft, non tender, normal bowel sounds EXTREMITIES: NO edema - dressing in place over scrotum,no active discharge or bleeding NEUROLOGICAL: no focal deficit PSYCHOLOGICAL: normal LABORATORY DATA, IMAGING STUDIES, MICROBIOLOGY: reviewed ASSESSMENT AND PLAN: 64 y/o M was admitted for scrotal abscess s/p I&D Plan 1. left Scrotal Abscess s/p I & D iv ceftriaxone will f/u with urology service 2. Obesity supportive care 3. Suspected ? billiary colic resolved o/p general surgery f/u 4.HLD home meds 5. GERD home meds VS, I&O, 24H, Fishbone Vital Signs/I&O Vital Signs Date Time Temp Pulse Resp B/P (MAP) Pulse Ox O2 Delivery O2 Flow Rate FiO2 09/05/19 14:00 98.5 76 15 109/48 (68) 97 Nasal Cannula 2.0 I&O- Last 24 Hours up to 6 AM 09/05/19 06:00 Intake Total 2120 ml Output Total 650 ml Balance 1470 ml Laboratory Data 24H LABS Laboratory Tests 2 09/05/19 05:54: Immature Granulocyte % (Auto) 0.6, Neutrophils (%) (Auto) 90.6H, Lymphocytes (%) (Auto) 4.1L, Monocytes (%) (Auto) 4.3, Eosinophils (%) (Auto) 0.1, Basophils (%) (Auto) 0.3, Neutrophils # (Auto) 10.5H, Lymphocytes # (Auto) 0.5L, Monocytes # (Auto) 0.5, Eosinophils # (Auto) 0.0, Basophils # (Auto) 0.0, Nucleated Red Blood Cells % (auto) 0.0, Anion Gap 5L, Glomerular Filtration Rate > 60.0, Calcium Level 8.8, Total Bilirubin 0.6, Aspartate Amino Transf (AST/SGOT) 19, Alanine Aminotransferase (ALT/SGPT) 20, Alkaline Phosphatase 73, Total Protein 6.7, Albumin 3.1L, Albumin/Globulin Ratio 0.9, Triglycerides Level 89, Total Cholesterol 140, LDL Cholesterol 87, Non-HDL Cholesterol (LDL + VLDL) 105, Total HDL Cholesterol 35L, Cholesterol/HDL Ratio 4.000 CBC/BMP Laboratory Tests 09/05/19 05:54 Microbiology Microbiology 09/04/19 Gram Stain - Final, Resulted 09/04/19 Abscess Culture, Resulted Pending 09/04/19 Anaerobic Culture, Resulted Pending 09/04/19 Respiratory Virus Panel (PCR) ([facility]) - Final, Complete 09/04/19 Gram Stain - Final, Resulted 09/04/19 Wound Culture, Resulted Pending THIAGO JETER MD Sep 05, 2019 18:29
[2019-09-06 02:00] VITALS: BP 104/52
[2019-09-06 06:00] VITALS: BP 108/51
[2019-09-06 06:31] LABS: BASO # 0.1 10^3/uL (0.0-0.2); BASO % 0.5 % (0.0-1.0); EOS # 0.1 10^3/uL (0.0-0.5); EOS % 1.2 % (0.0-3.0); HEMATOCRIT 37.9 % (42.0-52.0); HEMOGLOBIN 12.4 g/dl (13.5-17.5); LYMPH # 0.8 10^3/uL (1.5-5.0); LYMPH % 8.2 % (24.0-44.0); MEAN CORPUSCULAR HEMOGLOBIN 28.2 pg (27.0-33.0); MEAN CORPUSCULAR HGB CONC 32.7 g/dl (32.0-36.5); MEAN CORPUSCULAR VOLUME 86.3 fl (80.0-96.0); MONO % 10.6 % (0.0-5.0); NEUTROPHILS # 7.7 10^3/uL (1.5-8.5); NEUTROPHILS % 78.4 % (36.0-66.0); PLATELET COUNT, AUTOMATED 187 10^3/uL (150-450); RED BLOOD COUNT 4.39 10^6/uL (4.30-6.10); WHITE BLOOD COUNT 9.8 10^3/uL (4.0-10.0)
[2019-09-06] MEDS: D5W/0.45% SODIUM CHLORIDE 1,000 ML IV SCH (06:54)
[2019-09-06 06:59] LABS: ALT/SGPT 21 U/L (12-78); BILIRUBIN,TOTAL 0.5 MG/DL (0.2-1.0); BLOOD UREA NITROGEN 5 MG/DL (7-18); CALCIUM LEVEL 8.8 MG/DL (8.8-10.2); CARBON DIOXIDE LEVEL 25 MEQ/L (21-32); CHLORIDE LEVEL 110 MEQ/L (98-107); CREATININE FOR GFR 0.73 MG/DL (0.70-1.30); GLOMERULAR FILTRATION RATE > 60.0 (>49); GLUCOSE, FASTING 137 MG/DL (70-100); POTASSIUM SERUM 3.5 MEQ/L (3.5-5.1); SODIUM LEVEL 144 MEQ/L (136-145); TOTAL PROTEIN 5.9 GM/DL (6.4-8.2)
[2019-09-06] MEDS: cefTRIAXone SOD 2 GM in D5W MINI-BAG PLUS 50 ML IV SCH (08:19)
[2019-09-06] MEDS: OMEGA-3 1000MG CAPSULE PO SCH (08:19)
[2019-09-06] MEDS: ATORVASTATIN 20 MG TAB PO SCH (08:19)
[2019-09-06] MEDS: PANTOPRAZOLE 20 MG TAB PO SCH (08:19)
--- NOTE | 2019-09-06 09:46 | IPNPDOC ---
Subjective Review oF Systems Chief Complaint The patient is a 64-year-old male admitted with a reason for visit of Scrotal Abscess. Events since Last Encounter No acute events o/n. Good pain control. Tolerating dressing changes well. No f/c/ns. Objective Physical Examination General Exam: Alert, Cooperative, No Acute Distress Skin Exam: Nl turgor and temperature Neuro Exam: Normal Speech Psych Exam: Mental status NL, Mood NL Other physical findings R hemiscrotal incision w/ no surrounding erythema, no drainage, tissue looks healthy; mildly tender Vital Signs/I&O Vital Signs Date Time Temp Pulse Resp B/P (MAP) Pulse Ox O2 Delivery O2 Flow Rate FiO2 09/06/19 06:00 98.1 56 16 108/51 (70) 98 Room Air 09/06/19 02:00 I&O- Last 24 Hours up to 6 AM 09/06/19 05:59 Intake Total 3950 ml Output Total 2825 ml Balance 1125 ml Laboratory Data Labs 24H Laboratory Tests 2 09/06/19 05:27: Immature Granulocyte % (Auto) 1.1, Neutrophils (%) (Auto) 78.4H, Lymphocytes (%) (Auto) 8.2L, Monocytes (%) (Auto) 10.6H, Eosinophils (%) (Auto) 1.2, Basophils (%) (Auto) 0.5, Neutrophils # (Auto) 7.7, Lymphocytes # (Auto) 0.8L, Monocytes # (Auto) 1.0H, Eosinophils # (Auto) 0.1, Basophils # (Auto) 0.1, Nucleated Red Blood Cells % (auto) 0.0, Anion Gap 9, Glomerular Filtration Rate > 60.0, Calcium Level 8.8, Total Bilirubin 0.5, Aspartate Amino Transf (AST/SGOT) 20, Alanine Aminotransferase (ALT/SGPT) 21, Alkaline Phosphatase 65, Total Protein 5.9L, Albumin 3.0L, Albumin/Globulin Ratio 1.0 CBC/BMP Laboratory Tests 09/06/19 05:27 Microbiology Microbiology 09/04/19 Gram Stain - Final, Resulted 09/04/19 Abscess Culture, Resulted Pending 09/04/19 Anaerobic Culture, Resulted Pending 09/04/19 Respiratory Virus Panel (PCR) ([facility]) - Final, Complete 09/04/19 Gram Stain - Final, Resulted 09/04/19 Wound Culture, Resulted Pending Assessment/Plan Date Seen The patient was seen on 09/06/19. Patient Summary This is a 64 y/o M POD2 s/p I&D of R scrotal abscess. Afebrile. WBC normal. Good pain control. Plan/VTE VTE Prophylaxis Ordered?: Yes VTE Exclusion Mechanical Proph: N/A:VTE Prophy Ordered Plan - continue bid wet-to-dry dressing changes - percocet prn pain - will discharge home on bactrim x 2 wks - f/u in office next wk LORIN BULLARD MD Sep 06, 2019 09:46
[2019-09-06] MEDS ORDERED: BACT400T PO (09:54)
[2019-09-06] MEDS ORDERED: OXYC1TAB23 PO (09:54)
[2019-09-06 10:00] VITALS: BP 110/50
--- NOTE | 2019-09-06 13:17 | DS.PDOC ---
Discharge Summary General Date of Admission Sep 04, 2019 at 18:21 Date of Discharge 09/06/19 Discharge Summary PROCEDURES PERFORMED DURING STAY: Scrotal I&D ADMITTING DIAGNOSES: Scrotal Abscess s/p I&D DISCHARGE DIAGNOSES: Resolved episode of scrotal abscess s/p I&D COMPLICATIONS/CHIEF COMPLAINT: Scrotal Abscess. Hospital Course -64 y/o M was admitted for scrotal abscess s/p I&D. Pt received iv ceftriaxone and scrotal dressing dressing change BID. Pt initially c/o one episode of RUQ pain for that US was obtained that did not show any acute pathology except chronically dilated CBD 8 mm. Over the course of treatment pt's clinical condition improved. Pt was seen examined at bedside of day of discharge. Pt stated that he is feeling fine and did not have any complaint. Pain meds and bactrim were prescribed by urology service. Pt was clinically and vitally stable at the time of discharge. I spent 35 minutes of time in coordinating discharge of this patient. PHYSICAL EXAMINATION ON DISCHARGE: GENERAL: Comfortable HEENT: Oral mucosa moist NECK: supple CARDIOVASCULAR EXAMINATION: regular rate and rhythm RESPIRATORY EXAMINATION: C;ear to auscultation ABDOMINAL EXAMINATION: soft EXTREMITIES: SKIN: NEUROLOGICAL EXAMINATION: PSYCHIATRIC EXAMINATION: ITEMS TO FOLLOWUP ON ON OUTPATIENT: 1. Pt to f/u with urology 2. To f/u with PMD for general surgery referral for episode of ? biliary colic and chronically dilated CBD DISCHARGE CONDITION: good TIME SPENT ON DISCHARGE: 32 minutes. Vital Signs/I&Os Vital Signs Date Time Temp Pulse Resp B/P (MAP) Pulse Ox O2 Delivery O2 Flow Rate FiO2 09/06/19 06:00 98.1 56 16 108/51 (70) 98 Room Air 09/06/19 02:00 I&O- Last 24 Hours up to 6 AM 09/06/19 06:00 Intake Total 3650 ml Output Total 2900 ml Balance 750 ml Laboratory Data Labs 24H Laboratory Tests 2 09/06/19 05:27: Immature Granulocyte % (Auto) 1.1, Neutrophils (%) (Auto) 78.4H, Lymphocytes (%) (Auto) 8.2L, Monocytes (%) (Auto) 10.6H, Eosinophils (%) (Auto) 1.2, Basophils (%) (Auto) 0.5, Neutrophils # (Auto) 7.7, Lymphocytes # (Auto) 0.8L, Monocytes # (Auto) 1.0H, Eosinophils # (Auto) 0.1, Basophils # (Auto) 0.1, Nucleated Red Blood Cells % (auto) 0.0, Anion Gap 9, Glomerular Filtration Rate > 60.0, Calci um Level 8.8, Total Bilirubin 0.5, Aspartate Amino Transf (AST/SGOT) 20, Alanine Aminotransferase (ALT/SGPT) 21, Alkaline Phosphatase 65, Total Protein 5.9L, Albumin 3.0L, Albumin/Globulin Ratio 1.0 CBC/BMP Laboratory Tests 09/06/19 05:27 Microbiology Microbiology 09/04/19 Gram Stain - Final, Resulted 09/04/19 Abscess Culture, Resulted Pending 09/04/19 Anaerobic Culture, Resulted Pending 09/04/19 Respiratory Virus Panel (PCR) ([facility]) - Final, Complete 09/04/19 Gram Stain - Final, Resulted 09/04/19 Wound Culture, Resulted Pending Discharge Medications Scheduled Aspirin (Aspir 81) 81 Mg Tablet.dr, 81 MG PO DAILY, (Reported) Atorvastatin Calcium (Atorvastatin Calcium) 40 Mg Tablet, 40 MG PO DAILY, (Reported) Esomeprazole Magnesium (Nexium) 20 Mg Capsule.dr, 20 MG PO DAILY, (Reported) Fish Oil/Borage/Flax/Om3,6,9 1 ([place] 3-6-9 Complex Softgel) 400 Mg Capsule, 1 CAP PO DAILY, (Reported) Multivitamin (Multivitamins) 1 Each Capsule, 1 CAP PO DAILY, (Reported) Olodaterol HCl (Striverdi Respimat) 4 Gm Mist.inhal, 2 PUFFS INH DAILY, (Reported) Sulfamethoxazole/Trimethoprim (Bactrim 400-80 mg Tablet) 1 Each Tablet, 1 TAB PO BID Scheduled PRN Albuterol Sulfate (Proair Hfa) 8.5 Gm Hfa.aer.ad, 2 PUFF INH Q4HP PRN for SOB/WHEEZING, (Reported) Oxycodone HCl/Acetaminophen (Oxycodone-Acetaminophen 5-325) 1 Each Tablet, 1 TAB PO Q4H PRN for MODERATE/SEVERE PAIN (PS 5-10) Allergies Coded Allergies: TAPE (Verified Allergy, Mild, blistering skin on contact area, 08/17/19) Blueberry (Verified Allergy, Unknown, 10/03/18) wool (Verified Allergy, Unknown, 10/03/18) THIAGO JETER MD Sep 06, 2019 10:11
--- NOTE | 2019-09-08 14:51 | NOCOX ---
DATE OF PROCEDURE: 09/05/2019 Study was performed on room air. The total valid sampling time was approximately 7 hours. The patient's oxygen saturation sat ranged from 100% to a low of 84%. The heart rate ranged from 94 to a low of 45. The time spent with an oxygen saturation less than 88% was 10 seconds. Graphically the patient was noted to have saw toothing noted on the SpO2 waveform. There was also some heart rate variability noted overnight as well. IMPRESSION: The patient did not have significant desaturation noted overnight. On the SpO2 waveform there was saw-toothing pattern which could suggest sleep disordered breathing. RECOMMENDATIONS: Formal sleep testing if clinically indicated. [facility]
--- NOTE | 2019-09-12 11:15 | RO ---
DATE OF PROCEDURE: 09/04/2019 PREPROCEDURE DIAGNOSIS: Left scrotal abscess. POSTPROCEDURE DIAGNOSIS: Left scrotal abscess. PROCEDURE: Incision and drainage of scrotal abscess. SURGEON: Dr. Aurelio White. [employer]IC: None. ANESTHESIA: General. OPERATIVE INDICATIONS: This is a 64-year-old male who was found to have an approximately 10 cm left scrotal abscess. He was brought to the operating room today for treatment. DESCRIPTION OF PROCEDURE: The patient was brought to the operating room and general anesthesia was induced. Broad-spectrum antibiotics were infused. He was then placed in the supine position and prepped and draped in the usual sterile fashion. At this point an approximately 5-6 cm longitudinal incision was made in the left hemiscrotum just lateral to the medial raphe. Yellowish pus immediately started draining out. Cultures were obtained of the purulent drainage. The abscess cavity was then probed and all of the cavities were opened up. The abscess appeared to extend almost to the base of the penis. The abscess cavity was thoroughly irrigated out with approximately 150 mL of normal saline. All of the tissue appeared to be healthy. There was no necrotic tissue. At this point, hemostasis was obtained using a Bovie. Once satisfied with hemostasis, the abscess cavity was packed with a minimally moist Kerlix sponge and then covered with an ABD gauze. This marked the conclusion of the procedure. The patient was then awakened from anesthesia and transported to the recovery room in stable condition. ESTIMATED BLOOD LOSS: 10 mL. COMPLICATIONS: None. SPECIMENS: Culture of left scrotal abscess. PLAN: The patient will be admitted to the hospital for further care and IV antibiotics. He may ultimately be discharged home once cultures fit the antibiotics and once his pain is better controlled.
== END 2019-09-06 14:27 | disposition home or self-care (01) | DRG 501 ==
LOC: M ED 14:52 → M ED INP 18:21 → ENRESERV 19:42 → M MSPAV 23:54
PROVIDERS: ADMIT General Practice; ATTEND Internal Medicine
PROC: 0V950ZZ Drainage of Scrotum, Open Approach (ICD-10-PCS; principal; 2019-09-04 20:30)
DX: N49.2 Inflammatory disorders of scrotum (principal); Z68.41 Body mass index [BMI] 40.0-44.9, adult; I10 Essential (primary) hypertension; K83.8 Other specified diseases of biliary tract; K21.9 Gastro-esophageal reflux disease without esophagitis; G47.33 Obstructive sleep apnea (adult) (pediatric); J44.9 Chronic obstructive pulmonary disease, unspecified; E11.9 Type 2 diabetes mellitus without complications; K44.9 Diaphragmatic hernia without obstruction or gangrene; E78.5 Hyperlipidemia, unspecified; F17.210 Nicotine dependence, cigarettes, uncomplicated; E66.9 Obesity, unspecified; Z91.018 Allergy to other foods; Z91.048 Other nonmedicinal substance allergy status; Z11.59 Encounter for screening for other viral diseases; Z85.118 Personal history of other malignant neoplasm of bronchus and lung; Z92.3 Personal history of irradiation; Z92.21 Personal history of antineoplastic chemotherapy; Z86.010 Personal history of colon polyps; Z79.82 Long term (current) use of aspirin; Z79.899 Other long term (current) drug therapy

== ENCOUNTER → 2019-11-22 | Outpatient (CLI) | payer OTHER ==
[~2019-11-22] MED LIST changes: -ASPI81TA85 PO; +ASPI81TA86 PO; +BACT400T PO; +OXYC1TAB23 PO
--- NOTE | 2019-11-22 11:49 | RADONC ---
Radiation Oncology Hx/FUP Radiation Oncology Consult Date of Service: Nov 22, 2019 Pt Identifier Amish Chew is a 64 year old male seen for a followup visit today at the department of radiation oncology for a history of LS SCLC of the left lung. He completed chemoradiation to 68 Gy in 36 fractions on 01/26/19 followed by PCI 25 Gy in 10 fractions completed 07/10/19. Diagnosis/Treatment History Oncologic History The patient was in his usual state of health but underwent low-dose lung screening CT scan on 08/24/2018 which revealed a 4.9 cm left upper lobe mass with spiculated margins. On 10/05/2018 the patient underwent bronchoscopic biopsy and pathology revealed a poorly differentiated small cell lung carcinoma. PET scan was done 10/25/2018 and showed hypermetabolic uptake with an SUV value of 16.73 in the left upper lobe. No other abnormal hypermetabolic uptake was noted. Completed chemoradiation 68 Gy in 36 fractions on 01/26/19 MRI head on 03/02/19 negative Completed PCI 25 Gy in 10 fractions on 07/10/19 CT chest 08/14/19 with post RT changes versus recurrent ROBI nodule recommended PET to rule out recurrence PET-CT on 08/29/19 no avid disease stable post RT fibrosis Interval History Reports he feels relatively well except for a metallic taste in his mouth which has been present since brief hospitalization for scrotal abscess in August 2019. Maybe antibiotic related? Notes smell and other CN functions intact. No weakness, numbness, ANDRADE or imbalance. No concerns regarding short term memory. Has no CP or SOB. No GI symptoms or bony pain. Has not had scans recently (most recent was August PET-CT). Does not have medical oncology follow up appointment in place. Reports that his vice president sales and marketing reviewed the PET results with him recently, was happy to hear they were negative. Current Therapy Surveillance Stage SCLC LS AJCC IIB, [id number], of the left upper lobe Social History: 1ppd smoker Non drinker Allergies / Meds Allergies: Coded Allergies: TAPE (Verified Allergy, Mild, blistering skin on contact area, 08/17/19) Blueberry (Verified Allergy, Unknown, 10/03/18) wool (Verified Allergy, Unknown, 10/03/18) Home Meds Active Scripts Oxycodone HCl/Acetaminophen (Oxycodone-Acetaminophen 5-325) 1 Each Tablet, 1 TAB PO Q4H PRN for MODERATE/SEVERE PAIN (PS 5-10) MDD 6, #30 TAB Prov:LORIN BULLARD MD 09/06/19 Sulfamethoxazole/Trimethoprim (Bactrim 400-80 mg Tablet) 1 Each Tablet, 1 TAB PO BID for 14 Days, #28 TAB Prov:LORIN BULLARD MD 09/06/19 Reported Medications Fish Oil/Borage/Flax/Om3,6,9 1 ([place] 3-6-9 Complex Softgel) 400 Mg Capsule, 1 CAP PO DAILY 10/03/18 Albuterol Sulfate (Proair Hfa) 8.5 Gm Hfa.aer.ad, 2 PUFF INH Q4HP PRN for SOB/WHEEZING, INHALER 10/03/18 Olodaterol HCl (Striverdi Respimat) 4 Gm Mist.inhal, 2 PUFFS INH DAILY 10/03/18 Atorvastatin Calcium (Atorvastatin Calcium) 40 Mg Tablet, 40 MG PO DAILY 10/03/18 Multivitamin (Multivitamins) 1 Each Capsule, 1 CAP PO DAILY 10/03/18 Aspirin (Aspir 81) 81 Mg Tablet.dr, 81 MG PO DAILY 10/03/18 Esomeprazole Magnesium (Nexium) 20 Mg Capsule.dr, 20 MG PO DAILY 10/03/18 Review of Systems Review of Systems Constitutional: Denies: ROS Unabtainable, Chills, Fever, Malaise, Night Sweats, Weakness, Fatigue, Weight Loss, Lethargy, Normal appetite, Other symptoms Eyes: Denies: Pain, Vision change, Conjunctivae inflammation, Eyelid i nflammation, Redness, Other HEENT: Denies: Head Aches, Ear Pain, Dysphagia, Sinus Congestion, Post Nasal D rip, Sore Throat, Epistaxis, Other Symptoms Skin: Denies: Rash, Lesions, Jaundice, Bruising, Other Pulmonary: Denies: Dyspnea, Cough, Pleuritic Chest Pain, Other Symptoms Cardiovascular: Denies: Chest Pain, Palpitations, Orthopnea, Paroxysmal Noc. Dyspnea, Edema, Lt Headedness, Other Symptoms Gastrointestinal: Denies: Nausea, Vomiting, Abdominal Pain, Diarrhea, Constipation, Melena, Hematochezia, Other Symptoms Genitourinary: Denies: Dysuria, Frequency, Incontinence, Hematuria, Retention, Other Symptoms Hematologic: Denies: Bruising, Bleeding Excessively, Petecchia, Purpura, Enlarged Lymph Nodes, Other Hematologic Endocrine: Denies: Polydipsia, Polyphagia, Polyuria, Heat Intolerance, Cold Intolerance, Other Endocrine Sx Musculoskeletal: Denies: Neck pain, Shoulder pain, Arm pain, Back pain, Hand pain, Leg pain, Foot pain, Joint pain, Muscle pain, Spasms, Gout, Joint sweling, Muscle stiffness, Midthoracic pain, Other Neurological: Denies: Weakness, Numbness, Incoordination, Change in Speech, Confusion, Seizures, Other Symptoms Psych: Denies: Mood Normal, Anxiety, Depression, Memory Issues, Thoughts of Self Harm, Anger, Thoughts of harming Other, Other Psych Physical Examination Vital Signs Wt 214 T 97.8 P 85 RR 20 BP 126/83 O2 96% General Exam: Positive: Alert, Cooperative, No Acute Distress Eye Exam: Positive: PERRLA, EOMI ENT EXAM: Positive: Atraumatic, Mucous membr. moist/pink, Pharynx Normal Neck Exam: Negative: Lymphadenopathy Chest Exam: Positive: Clear to auscultation, Normal air movement Heart Exam: Positive: Rate Normal, Regular Rhythm Abdomen Exam: Positive: Normal bowel sounds, Soft Extremity Exam: Negative: Edema Skin Exam: Positive: Nl turgor and temperature Neuro Exam: Positive: Normal Gait, Normal Speech, Strength at 5/5 X4 ext, Normal Tone, Cranial Nerves 3-12 NL Psych Exam: Positive: Mental status NL, Mood NL Diagnostic and Laboratory Diagnostic Review Radiologic images, relevant labs and pathology reports were personally reviewed and discussed with Mr. Chew. Assessment and Plan Impression Assessment Mr. Chew is a 64 year old male seen for a followup visit today at the department of radiation oncology for a history of LS SCLC of the left lung. He completed chemoradiation to 68 Gy in 36 fractions on 01/26/19 followed by PCI 25 Gy in 10 fractions completed 07/10/19. Was DEBORAH on PET-CT from 08/29/19. No complaints today other than metallic taste in mouth, no focality on neuro exam. Do not suspect brain metastases, rather association with antibiotics for scrotal abscess may be at play. Counseled him that he should call me if he develops additional neuro symptoms such as ANDRADE, N, V, or imbalance. I will order scans today as he is due, CT chest abdomen and pelvis. If these are abnormal I will call him. I would like to split follow up with Dr. Mccarthy and so will get him an appointment with her in 3 months time. I will then see him in 6 months time, as such he will be seen every 3 months which is appropriate. He agrees with the plan. Performance Status ECOG 0 Plan Surveillance CTs now Medical oncology in 3 months Follow up with me in 6 months Mr. Chew was encouraged to call with questions or concerns in the interim period. SUSSY SPRAGUE MD Nov 22, 2019 11:49
== END ==
LOC: M ONCR 10:23
PROVIDERS: ATTEND General Practice
DX: C34.12 Malignant neoplasm of upper lobe, left bronchus or lung (principal)

== ENCOUNTER → 2019-11-30 | Outpatient (CLI) | payer OTHER ==
[2019-11-30 14:05] LABS: ALBUMIN 3.1 GM/DL (3.2-5.2); ALT/SGPT 15 U/L (12-78); BILIRUBIN,TOTAL 0.6 MG/DL (0.2-1.0); BLOOD UREA NITROGEN 10 MG/DL (7-18); CALCIUM LEVEL 9.3 MG/DL (8.8-10.2); CARBON DIOXIDE LEVEL 30 MEQ/L (21-32); CHLORIDE LEVEL 105 MEQ/L (98-107); CREATININE FOR GFR 0.71 MG/DL (0.70-1.30); GLOMERULAR FILTRATION RATE > 60.0 (>49); GLUCOSE, FASTING 111 MG/DL (70-100); SODIUM LEVEL 141 MEQ/L (136-145); TOTAL PROTEIN 6.2 GM/DL (6.4-8.2)
== END ==
LOC: M LAB 12:54
PROVIDERS: ATTEND General Practice
DX: C34.12 Malignant neoplasm of upper lobe, left bronchus or lung (principal)

== ENCOUNTER → 2019-12-01 | Outpatient (CLI) | payer OTHER ==
[~2019-12-01] MED LIST changes: +GASTROGRAFIN SOLUTION 30ML (Q9963) As Ordered ONE; +ISOVUE-370 76% 100ML VIAL As Ordered ONE
--- NOTE | 2019-12-06 14:08 | REP ---
CT STUDY OF THE ABDOMEN AND PELVIS WITH IV AND ORAL CONTRAST: DUAL PHASE POST CONTRAST IMAGING HISTORY: Lung carcinoma. COMPARISON: Comparison was made with PET/CT imaging from August 29, 2019, and CT abdomen and pelvis imaging from April 04, 2019. CT CONTRAST DOSE: 100 mL of intravenous Isovue-370. CT FINDINGS: Preliminary software implementation project manager view is unremarkable. The liver is normal in size, homogeneous in texture except for the presence of one or two granulomatous calcifications. No splenic lesion is seen. Normal adrenal glands are observed. No renal mass is seen. The kidneys enhance symmetrically and are morphologically intact except for tiny cortical cysts. There is a mottled pattern of density in the dependent portion of the gallbladder, question radiolucent stones. No other gallbladder abnormality is seen. No abnormality is noted in the pancreas. The small and large intestinal bowel loops are unremarkable in the abdomen. Pelvic CT images again demonstrate diverticulosis of the sigmoid colon without CT evidence of diverticulitis. No pelvic mass or adenopathy is seen. No abdominal wall defect is observed. No bony destructive lesion. IMPRESSION: No evidence of mass or adenopathy. Left colonic diverticulosis. MTDD
--- NOTE | 2019-12-06 14:09 | REP ---
CT CHEST WITH IV CONTRAST HISTORY: Lung cancer. COMPARISON: Comparison is made with PET/CT imaging from August 29, 2019. Comparison CT study of the chest August 14, 2019. CT CONTRAST DOSE: 100 mL of intravenous Isovue-370. CT FINDINGS: There are stable band-like fibrotic changes consistent with postradiation change in the left upper lobe distribution with some volume loss. These findings are unchanged from the comparison CT study of August 14, 2019. No new pulmonary mass or nodule is seen. No pleural effusion or pericardial effusion is seen. No hilar or mediastinal mass or adenopathy is observed. There is some vascular calcification. No axillary adenopathy or other extrathoracic adenopathy is seen. The adrenal glands are normal. There is a granuloma calcification in the left lobe of the liver. Visualized upper abdominal structures are otherwise unremarkable. No bony destructive lesion is seen. IMPRESSION: Stable band-like fibrotic changes with volume loss in the left upper lobe distribution consistent with postradiation changes. Otherwise no acute abnormality. MTDD
== END ==
LOC: M RAD 13:18
PROVIDERS: ATTEND General Practice
DX: C34.12 Malignant neoplasm of upper lobe, left bronchus or lung (principal); Z92.3 Personal history of irradiation; K76.89 Other specified diseases of liver
CPT/HCPCS: 71260; 74177; Q9963; Q9967

== ENCOUNTER → 2019-12-08 | Outpatient (CLI) | payer OTHER ==
[~2019-12-08] MED LIST changes: -GASTROGRAFIN SOLUTION 30ML (Q9963) As Ordered ONE; -ISOVUE-370 76% 100ML VIAL As Ordered ONE
--- NOTE | 2019-12-08 09:55 | REP ---
INDICATION: ABN FINDING ON IMAGING, OTH DX OF BILIARY/PANCREAS there is a history of pancreatitis. COMPARISON: Comparison CT study December 01, 2019.. TECHNIQUE: Axial and coronal T2 weighted scans are obtained. MRCP acquisition is performed and T2-weighted a maximum intensity projection images were generated and viewed in rotational format. FINDINGS: No focal liver lesion is appreciated. No filling defect is seen within the gallbladder. No evidence of pancreatic ductal dilation is seen. The common bile duct is mildly dilated measuring 8.9 mm. Its distal end is tapered without evidence of mass effect. No filling defect is seen in the common bile duct. IMPRESSION: Mildly dilated common bile duct without evidence of mass or choledocholithiasis. Etiology uncertain. No intrahepatic or pancreatic ductal dilation. <Electronically signed by River Ma > 12/08/19 [id number]
--- NOTE | 2019-12-08 12:34 | REP ---
INDICATION: ABN FINDING ON IMAGING, OTH DX OF BILIARY/PANCREAS. Upper abdominal pain episodic for 3 months. Nausea vomiting. Weight loss. COMPARISON: Comparison MRI and CT study December 08, 2019 and December 01, 2019.. TECHNIQUE/RADIOTRACER AND DOSE: 6.6 mCi of technetium-99m mebrofenin was injected and sequential anterior images are acquired. 65 minutes after the mebrofenin injection, the patient consumed 8 ounces Ensure and an additional 60 minutes of imaging was acquired. Regions of interest are plotted around the gallbladder. FINDINGS: The initial hepatocellular parenchymal uptake phase is normal and homogeneous. Intra- and extra-hepatic bile ducts are labeled by the 20-minute image. The gallbladder is first labeled on the 3 hour delayed image.There is normal washout from the liver parenchyma into the gallbladder and small intestine on subsequent images. IMPRESSION: Delayed visualization of the gallbladder between 1 hour and 3 hour images. Findings consistent with chronic cholecystitis. Otherwise negative. <Electronically signed by River Ma > 12/08/19 2005
== END ==
LOC: M RAD 07:32
PROVIDERS: ATTEND Surgery
DX: K83.8 Other specified diseases of biliary tract (principal); K86.89 Other specified diseases of pancreas; R93.2 Abnormal findings on diagnostic imaging of liver and biliary tract

== ENCOUNTER → 2020-01-31 | Outpatient (REF) | payer OTHER ==
[~2020-01-31] MED LIST changes: +ECOT81TA5 PO; +FAMO40TA3
[2020-01-31 17:10] LABS: BLOOD UREA NITROGEN 11 MG/DL (7-18); CALCIUM LEVEL 9.6 MG/DL (8.8-10.2); CARBON DIOXIDE LEVEL 31 MEQ/L (21-32); CHLORIDE LEVEL 106 MEQ/L (98-107); CREATININE FOR GFR 0.76 MG/DL (0.70-1.30); GLOMERULAR FILTRATION RATE > 60.0 (>49); GLUCOSE, FASTING 84 MG/DL (70-100); POTASSIUM SERUM 4.4 MEQ/L (3.5-5.1); SODIUM LEVEL 140 MEQ/L (136-145)
[2020-01-31 17:20] LABS: BASO # 0.1 10^3/uL (0.0-0.2); BASO % 0.6 % (0.0-1.0); EOS # 0.2 10^3/uL (0.0-0.5); EOS % 1.8 % (0.0-3.0); HEMATOCRIT 42.5 % (42.0-52.0); HEMOGLOBIN 13.7 g/dl (13.5-17.5); LYMPH % 10.8 % (24.0-44.0); MEAN CORPUSCULAR HEMOGLOBIN 28.7 pg (27.0-33.0); MEAN CORPUSCULAR HGB CONC 32.2 g/dl (32.0-36.5); MEAN CORPUSCULAR VOLUME 89.1 fl (80.0-96.0); MONO # 1.1 10^3/uL (0.0-0.8); MONO % 12.1 % (0.0-5.0); NEUTROPHILS # 6.6 10^3/uL (1.5-8.5); NEUTROPHILS % 74.1 % (36.0-66.0); PLATELET COUNT, AUTOMATED 246 10^3/uL (150-450); RED BLOOD COUNT 4.77 10^6/uL (4.30-6.10); WHITE BLOOD COUNT 8.9 10^3/uL (4.0-10.0)
[2020-01-31 17:27] LABS: HEMOGLOBIN A1c 5.5 %
== END ==
LOC: M SFHCPLAZ 14:32
PROVIDERS: ATTEND Family Medicine
DX: C34.90 Malignant neoplasm of unspecified part of unspecified bronchus or lung (principal); E11.9 Type 2 diabetes mellitus without complications; I10 Essential (primary) hypertension

== ENCOUNTER → 2020-02-01 | Outpatient (CLI) | payer OTHER | LOC: M LABSMTC 10:21 | PROVIDERS: ATTEND Anesthesiology | DX: Z01.812 Encounter for preprocedural laboratory examination (principal); Z20.828 Contact with and (suspected) exposure to other viral communicable diseases ==

== ENCOUNTER → 2020-05-15 | Outpatient (CLI) | payer OTHER ==
[~2020-05-15] MED LIST changes: +CEPH500C PO; +CVS1CAP2 PO; +D31000TA2 PO; -FAMO40TA3; +FAMO40TA3 PO; +LISI10TA22 PO; -LISI10TA4 PO; +MULT-90 PO
--- NOTE | 2020-05-15 10:53 | RADONC ---
Radiation Oncology Hx/FUP Radiation Oncology Hx/FUP Date of Service: May 15, 2020 Pt Identifier Amish Chew is a 65 year old male seen for a followup visit today at the department of radiation oncology for a history of LS SCLC of the left lung. He completed chemoradiation to 68 Gy in 36 fractions on 01/26/19 followed by PCI 25 Gy in 10 fractions completed 07/10/19. Diagnosis/Treatment History Oncologic History The patient was in his usual state of health but underwent low-dose lung screening CT scan on 08/24/2018 which revealed a 4.9 cm left upper lobe mass with spiculated margins. On 10/05/2018 the patient underwent bronchoscopic biopsy and pathology revealed a poorly differentiated small cell lung carcinoma. PET scan was done 10/25/2018 and showed hypermetabolic uptake with an SUV value of 16.73 in the left upper lobe. No other abnormal hypermetabolic uptake was noted. Completed chemoradiation 68 Gy in 36 fractions on 01/26/19 MRI head on 03/02/19 negative Completed PCI 25 Gy in 10 fractions on 07/10/19 CT chest 08/14/19 with post RT changes versus recurrent ROBI nodule recommended PET to rule out recurrence PET-CT on 08/29/19 no avid disease stable post RT fibrosis CT chest abdomen pelvis from 12/01/19 showing post treatment changes in the ROBI and no evidence of distant disease. Survivorship Test Due Next Last result Notes TSH, T4* 6m post-tx, then q1y 202109/25/19 0.63 Carotid US* q10 y post-tx 2029 Smoking cessation Assess annually if applicable 2021 Chest imaging As indicated, indefinite CT surveillance 05/[address] Pop Mammograms Min q1y, in eligible female patients N/A Echocardiogram q10y post treatment if mediastinum treated 2029 PFTs As indicated N/A CBC,CMP, Lipids q1y 2021 Interval History Boris has a main complaint of perineal wound which has been ongoing for several months. He completed a course of antibiotics for this without improvement. He says that it drains blood and pus continuously and that he has to wear depends and pack with extra gauze pads to sop up the drainage. It is uncomfortable but minimally painful. He endorses a history of pelvic surgery and scrotal abscess from August 2019. He has no significant breathing concerns or neurocognitive concerns s/p PCI. Current Therapy Surveillance Stage SCLC LS AJCC IIB, [id number], of the left upper lobe Social History: 1 ppd smoker 50+ year pack history Non-drinker Allergies / Meds Allergies: Coded Allergies: TAPE (Verified Allergy, Mild, blistering skin on contact area, 01/23/20) Blueberry (Verified Allergy, Unknown, 01/23/20) wool (Verified Allergy, Unknown, 01/23/20) Home Meds Active Scripts Cephalexin (Cephalexin) 500 Mg Capsule, 1 CAP PO TID for 10 Days, #30 CAP Prov:ORIN POP MD 04/22/20 Reported Medications Cholecalciferol (Vitamin D3) (Vitamin D3) Unknown Strength Tablet, PO, TAB 04/22/20 Lactobacillus Combo No.10 (Probiotic) 1 Each Capsule, 1 TAB PO DAILY for 30 Days, #30 TAB 04/22/20 Multivitamin (Multivitamin) 1 Each Tablet, 1 EACH PO DAILY, TAB 04/22/20 Aspirin (Ecotrin) 81 Mg Tablet.dr, 81 MG PO DAILY for pain for 30 Days, #30 TAB 01/23/20 Famotidine (Famotidine) 40 Mg Tablet, 1 TAB PO DAILY 01/23/20 Fish Oil/Borage/Flax/Om3,6,9 1 ([place] 3-6-9 Complex Softgel) 400 Mg Capsule, 1 CAP PO DAILY 10/03/18 Albuterol Sulfate (Proair Hfa) 8.5 Gm Hfa.aer.ad, 2 PUFF INH Q4HP PRN for SOB/WHEEZING, INHALER 10/03/18 Olodaterol HCl (Striverdi Respimat) 4 Gm Mist.inhal, 2 PUFFS INH DAILY 10/03/18 Atorvastatin Calcium (Atorvastatin Calcium) 40 Mg Tablet, 40 MG PO DAILY 10/03/18 Review of Systems Review of Systems Constitutional: Denies: Chills, Fever, Malaise Eyes: Denies: Pain HEENT: Reports: Post Nasal Drip; Denies: Head Aches Skin: Denies: Rash Pulmonary: Denies: Dyspnea, Cough, Pleuritic Chest Pain Cardiovascular: Denies: Chest Pain, Palpitations Gastrointestinal: Denies: Vomiting, Abdominal Pain Genitourinary: Reports: Frequency; Denies: Dysuria Endocrine: Denies: Cold Intolerance Musculoskeletal: Denies: Neck pain, Back pain Neurological: Denies: Weakness, Numbness Psych: Reports: Mood Normal Physical Examination Vital Signs Wt 228 lbs T 97.8 P 71 RR 18 BP 127/74 O2 95% Pain 0 Fatigue 1 General Exam: Positive: Alert, Cooperative, No Acute Distress Eye Exam: Positive: PERRLA, EOMI ENT EXAM: Positive: Atraumatic, Mucous membr. moist/pink Neck Exam: Positive: Supple; Negative: Lymphadenopathy Chest Exam: Positive: Clear to auscultation, Normal air movement Heart Exam: Positive: Rate Normal, Regular Rhythm Abdomen Exam: Positive: Normal bowel sounds, Soft; Negative: Tenderness Male Exam: Positive: Normal Genital Exam, Lesions (There is a draining perineal wound, left sided at the base of the left buttock, there is edema and extension anteriorly to the scrotum. There is active but scant purulent drainage from what looks like a abscess tract. I did not probe the wound. ) Extremity Exam: Negative: Edema Skin Exam: Positive: Nl turgor and temperature Neuro Exam: Positive: Normal Gait, Normal Speech, Cranial Nerves 3-12 NL Psych Exam: Positive: Mental status NL Diagnostic and Laboratory Diagnostic Review Radiologic images, relevant labs and pathology reports were personally reviewed and discussed with Mr. Chew. Assessment and Plan Impression Assessment Mr. Chew is a 65 year old male with a history of LS SCLC of the left lung. He completed chemoradiation to 68 Gy in 36 fractions on 01/26/19 followed by PCI 25 Gy in 10 fractions completed 07/10/19. He is due for surveillance body scans which Dr. Pop is facilitating per her recent note. With regard to the brain, I discussed that ongoing surveillance is now an NCCN recommendation even after PCI, therefore by mutual agreement we will obtain a scan in 6 months. 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 He would benefit from wound care evaluation so I will refer him there. I will see him in 6 months with MRI brain. Performance Status ECOG 1 Plan Follow up in 6 months with MRI brain Wound care referral placed for perineal/scrotal abscess Mr. Chew was encouraged to call with questions or concerns in the interim period. Billing Statement Total time of [29] minutes was spent preparing for the visit [2], obtaining HPI [4], examining the patient [4], reviewing diagnostic tests [2], discussing management options [5], coordinating care [2], and writing this note [10]. SUSSY SPRAGUE MD May 15, 2020 10:53
== END ==
LOC: M ONCR 10:05
PROVIDERS: ATTEND General Practice
DX: C34.12 Malignant neoplasm of upper lobe, left bronchus or lung (principal); Z92.21 Personal history of antineoplastic chemotherapy

== ENCOUNTER → 2020-05-27 | Outpatient (CLI) | payer OTHER ==
[~2020-05-27] MED LIST changes: +GASTROGRAFIN SOLUTION 30ML (Q9963) As Ordered ONE; +ISOVUE-370 76% 100ML VIAL As Ordered ONE
--- NOTE | 2020-05-28 03:17 | REP ---
INDICATION: SCLC COMPARISON: 12/01/2019 TECHNIQUE: Axial contrast enhanced images from the thoracic inlet to the upper abdomen with coronal and sagittal reformations using 75 ml Isovue 370 intravenous contrast material. [address] CT examination was performed using the following dose reduction techniques: Automated exposure control, adjustment of mA and/or kv according to the patient's size, and use of iterative reconstruction technique. FINDINGS: Pleuroparenchymal changes with scarring and small subpleural nodular densities extending from the left hilum primarily to the left upper lung zone remain essentially unchanged and or improved as compared with 08/14/2019. Previously noted small associated pleural reaction has resolved. The remainder of the bilateral aerated lung butler are essentially clear/stable. A small stable 2 mm nodule in the posterior aspect of the right lower lobe is unchanged. No new acute consolidation, significant nodule or mass identified. No effusion. No pneumothorax. The mediastinum demonstrates relatively normal appearance to the thoracic aorta, pulmonary vasculature, and heart/pericardium with minimal atherosclerotic changes suggested. No cardiomegaly or pericardial effusion. No obvious adenopathy. Surrounding musculoskeletal structures are intact. Limited upper abdomen demonstrates normal bilateral adrenal glands. IMPRESSION: 1. Chronic appearing pleuroparenchymal changes involving the left hemithorax without progression from prior examination. Findings likely represent chronic post therapeutic changes. 2. No obvious new acute mediastinal or pleuroparenchymal process appreciated. <Electronically signed by Praasnna Armendariz > 05/28/20 [id number]
--- NOTE | 2020-05-28 03:21 | REP ---
INDICATION: SCLC. COMPARISON: 12/01/2019 TECHNIQUE: Axial contrast-enhanced images from the lung bases to the pubic symphysis using oral and 100 cc Isovue 370 intravenous contrast material. Coronal and sagittal reformations obtained along with delayed images of the abdomen. This CT examination was performed using the following dose reduction techniques: Automated exposure control, adjustment of mA and/or kv according to the patient's size, and the use of iterative reconstruction technique. FINDINGS: Liver, spleen, pancreas, bilateral adrenal glands and kidneys are normal. Evidence for prior cholecystectomy. Small stable hepatic parenchymal calcifications likely represent sequelae from prior granulomatous disease or previous therapy. The enteric system including stomach, small, and large bowel appears normal. No evidence for obstruction or acute inflammatory process. Normal terminal ileum and appendix are identified in the right lower quadrant. Colonic diverticula noted without acute diverticulitis. Pelvis demonstrates normal bladder and with mild prostatomegaly and mass effect on the base of the bladder. No ascites. No free air. No intraperitoneal or retroperitoneal adenopathy. Abdominal aorta and vasculature appear normal. Musculoskeletal structures demonstrate age-related changes without acute osseous abnormality. IMPRESSION: No acute abdominopelvic pathology appreciated. Diverticulosis. Mild prostatomegaly with mass effect on the base of the bladder may warrant follow-up. <Electronically signed by Prasanna Armendariz > 05/28/20 [id number]
== END ==
LOC: M RAD 12:24
PROVIDERS: ATTEND Internal Medicine Medical Oncology
DX: C34.90 Malignant neoplasm of unspecified part of unspecified bronchus or lung (principal); N40.0 Benign prostatic hyperplasia without lower urinary tract symptoms
CPT/HCPCS: 71260; 74177; Q9963; Q9967

== ENCOUNTER → 2020-06-07 | Outpatient (REF) | payer OTHER ==
[~2020-06-07] MED LIST changes: -GASTROGRAFIN SOLUTION 30ML (Q9963) As Ordered ONE; -ISOVUE-370 76% 100ML VIAL As Ordered ONE
== END ==
LOC: M LAB REF 16:15
PROVIDERS: ATTEND Surgery
DX: L73.2 Hidradenitis suppurativa (principal)

== ENCOUNTER → 2020-06-10 | Outpatient (REF) | payer OTHER ==
[2020-06-10 15:55] LABS: HEMOGLOBIN A1c 5.6 %
[2020-06-10 16:41] LABS: ALBUMIN 3.3 GM/DL (3.2-5.2); ALT/SGPT 18 U/L (12-78); BILIRUBIN,TOTAL 0.6 MG/DL (0.2-1.0); BLOOD UREA NITROGEN 23 MG/DL (7-18); CALCIUM LEVEL 9.5 MG/DL (8.8-10.2); CARBON DIOXIDE LEVEL 33 MEQ/L (21-32); CHLORIDE LEVEL 106 MEQ/L (98-107); CHOLESTEROL LEVEL 129 MG/DL (<200); CHOLESTEROL RISK RATIO 2.931 (<5); CREATININE FOR GFR 0.79 MG/DL (0.70-1.30); GLOMERULAR FILTRATION RATE > 60.0 (>49); GLUCOSE, FASTING 104 MG/DL (70-100); HDL CHOLESTEROL 44 MG/DL (>40); LDL CHOLESTEROL 73 MG/DL (<100); NON-HDL-C 85 MG/DL; POTASSIUM SERUM 4.3 MEQ/L (3.5-5.1); SODIUM LEVEL 142 MEQ/L (136-145); TOTAL PROTEIN 6.4 GM/DL (6.4-8.2); TRIGLYCERIDES LEVEL 61 MG/DL (<150)
[2020-06-10 17:03] LABS: MALB URINE SIEMENS 26.1 MG/L; MAU/CREAT RATIO 18.2 MCG/MG (0.0-30.0)
== END ==
LOC: M PLALAB 10:33
PROVIDERS: ATTEND Nurse Practitioner Family
DX: E11.9 Type 2 diabetes mellitus without complications (principal); E78.2 Mixed hyperlipidemia; F17.210 Nicotine dependence, cigarettes, uncomplicated

== ENCOUNTER → 2020-07-03 | Outpatient (REF) | payer OTHER | LOC: M LAB REF 15:49 | PROVIDERS: ATTEND Surgery | DX: S31.809A Unspecified open wound of unspecified buttock, initial encounter (principal); W18.30XA Fall on same level, unspecified, initial encounter; Y92.009 Unspecified place in unspecified non-institutional (private) residence as the place of occurrence of the external cause ==

== ENCOUNTER → 2020-10-30 | Outpatient (CLI) | payer OTHER ==
[~2020-10-30] MED LIST changes: +FERR325T3 PO; -OLAN10TA2 PO; +OLAN1TAB20 PO; +PROHANCE 279.3MG/ML 15ML VIAL As Ordered ONE; +PROHANCE 279.3MG/ML 5ML VIAL As Ordered ONE
--- NOTE | 2020-10-30 14:37 | REPVR ---
PROCEDURE INFORMATION: Exam: MR Head Without and With Contrast Exam date and time: 10/30/2020 12:12 PM Age: 65 years old Clinical indication: Condition or disease; Other: Lung CA TECHNIQUE: Imaging protocol: MR of the head without and with intravenous contrast. Contrast material: PROHANCE; Contrast volume: 19 ml; Contrast route: INTRAVENOUS (IV); COMPARISON: CT Head W/O FOLL BY WITH CONTR 05/12/2019 2:28 PM FINDINGS: Brain: There is no extra-axial collection or intra-axial mass. Mild diffuse volume loss is within the range of normal for patient age. There are scattered foci of T2/FLAIR white matter hyperintensity, nonspecific but typically small-vessel ischemia in this age group. There is no diffusion restriction. Cerebral ventricles: Prominence of the ventricular system is commensurate with volume loss. Bones/joints: Unremarkable. Paranasal sinuses: There is mild ethmoid mucosal thickening. Mastoid air cells: Normal as visualized. No mastoid effusion. Orbital cavity: Unremarkable. Soft tissues: Unremarkable. IMPRESSION: No evidence of intracranial metastatic disease. Electronically signed by: Mary Kay Yepez On 10/30/2020 14:36:37 PM
== END ==
LOC: M RAD 10:51
PROVIDERS: ATTEND General Practice
DX: C34.90 Malignant neoplasm of unspecified part of unspecified bronchus or lung (principal)

== ENCOUNTER → 2021-01-09 | Outpatient (CLI) | payer OTHER ==
[~2021-01-09] MED LIST changes: -PROHANCE 279.3MG/ML 15ML VIAL As Ordered ONE; -PROHANCE 279.3MG/ML 5ML VIAL As Ordered ONE
--- NOTE | 2021-01-09 13:26 | REP ---
INDICATION: ABNORMAL FINDING OF LUNG FIELD COMPARISON: 05/27/2020-04/04/2019 TECHNIQUE: Axial noncontrast images from the thoracic inlet to the upper abdomen with coronal and sagittal reformations. This CT examination was performed using the following dose reduction techniques: Automated exposure control, adjustment of mA and/or kv according to the patient's size, and use of iterative reconstruction technique. FINDINGS: There is an ill-defined area of parenchymal disease involving the left suprahilar region with substantial surrounding scarring and fibroatelectatic changes extending peripherally within the left upper lobe (series 3 images 45-13) which appear similar to prior examination although slight increase in central consolidative/masslike component cannot be excluded and evaluation is somewhat limited due to the lack of intravenous contrast enhancement. Remainder of lung butler demonstrate emphysematous changes along with stable calcifications in the region of the right hilum. No further new acute consolidation, nodule or mass. No effusion. No pneumothorax. Tracheobronchial tree is relatively patent/stable. No obvious underlying adenopathy is identified. Thoracic aorta, pulmonary vasculature and heart/pericardium are stable and again demonstrate atherosclerotic changes. No pericardial effusion. Surrounding musculoskeletal structures are intact and without acute osseous abnormality. IMPRESSION: 1. Ill-defined pleuroparenchymal changes emanating from the left suprahilar region towards the periphery of the left upper lung zone again noted and similar to prior examination although direct comparison is limited due to current lack of intravenous contrast enhancement. Are consistent with previously suggested post radiation/post therapeutic changes although active disease cannot definitively be excluded. Findings appears to have progressed when compared through 04/04/2019 2. No new mediastinal or pleuroparenchymal process is appreciated. 3. Underlying chronic emphysematous changes and right hilar granulomata. <Electronically signed by Prasanna Armendariz > 01/09/21 [id number]
== END ==
LOC: M PLAIMG 12:31
PROVIDERS: ATTEND Internal Medicine Pulmonary Disease
DX: R91.8 Other nonspecific abnormal finding of lung field (principal)

== ENCOUNTER → 2021-03-24 | Outpatient (CLI) | payer OTHER ==
[~2021-03-24] MED LIST changes: +ONDA-84 PO; -ONDA8TAB10 PO; -PROC10TA4 PO; +PROC10TA5 PO
== END ==
LOC: M PLARAD 11:46
PROVIDERS: ATTEND Internal Medicine Pulmonary Disease
DX: C34.12 Malignant neoplasm of upper lobe, left bronchus or lung (principal)
CPT/HCPCS: 78815; A9552

== ENCOUNTER → 2021-04-16 | Outpatient (CLI) | payer MEDICARE ==
[~2021-04-16] MED LIST changes: -D31000TA2 PO; +VITA100093 PO
== END ==
LOC: M ADAMS 11:42
PROVIDERS: ATTEND Family Medicine
DX: M25.511 Pain in right shoulder (principal)

== ENCOUNTER → 2021-04-16 | Outpatient (REF) | payer MEDICARE ==
[2021-04-16 16:35] LABS: HEMATOCRIT 42.3 % (42.0-52.0); HEMOGLOBIN 13.5 g/dl (13.5-17.5); MEAN CORPUSCULAR HGB CONC 31.9 g/dl (32.0-36.5); MEAN CORPUSCULAR VOLUME 87.8 fl (80.0-96.0); PLATELET COUNT, AUTOMATED 294 10^3/uL (150-450); RED BLOOD COUNT 4.82 10^6/uL (4.30-6.10); WHITE BLOOD COUNT 12.5 10^3/uL (4.0-10.0)
[2021-04-16 17:02] LABS: ALBUMIN 3.5 GM/DL (3.2-5.2); ALT/SGPT 29 U/L (12-78); BILIRUBIN,TOTAL 0.5 MG/DL (0.2-1.0); BLOOD UREA NITROGEN 20 MG/DL (7-18); CALCIUM LEVEL 9.4 MG/DL (8.8-10.2); CARBON DIOXIDE LEVEL 29 MEQ/L (21-32); CHLORIDE LEVEL 104 MEQ/L (98-107); CHOLESTEROL LEVEL 197 MG/DL (<200); CHOLESTEROL RISK RATIO 3.862 (<5); CREATININE FOR GFR 0.82 MG/DL (0.70-1.30); FREE T4 1.12 NG/DL (0.76-1.46); GLOMERULAR FILTRATION RATE > 60.0 (>49); GLUCOSE, FASTING 93 MG/DL (70-100); HDL CHOLESTEROL 51 MG/DL (>40); LDL CHOLESTEROL 126 MG/DL (<100); NON-HDL-C 146 MG/DL; POTASSIUM SERUM 4.3 MEQ/L (3.5-5.1); SODIUM LEVEL 138 MEQ/L (136-145); TOTAL PROTEIN 6.8 GM/DL (6.4-8.2); TRIGLYCERIDES LEVEL 99 MG/DL (<150)
[2021-04-16 17:03] LABS: TOTAL 25(OH) VITAMIN D 22.5 NG/ML (30.0-100.0); VITAMIN B12 LEVEL 802 PG/ML (247-911)
[2021-04-16 17:04] LABS: MALB URINE SIEMENS 57.9 MG/L; MAU/CREAT RATIO 21.2 MCG/MG (0.0-30.0)
[2021-04-16 19:08] LABS: HEMOGLOBIN A1c 5.9 %
== END ==
LOC: M SFHCADAM 11:38
PROVIDERS: ATTEND Family Medicine
DX: E78.5 Hyperlipidemia, unspecified (principal); G47.33 Obstructive sleep apnea (adult) (pediatric); C34.90 Malignant neoplasm of unspecified part of unspecified bronchus or lung; E11.69 Type 2 diabetes mellitus with other specified complication; R79.89 Other specified abnormal findings of blood chemistry; J44.9 Chronic obstructive pulmonary disease, unspecified; Z12.5 Encounter for screening for malignant neoplasm of prostate; Z79.899 Other long term (current) drug therapy

== ENCOUNTER → 2022-07-23 | Outpatient (CLI) | payer MEDICARE | LOC: M RAD 15:41 | PROVIDERS: ATTEND Internal Medicine Pulmonary Disease | DX: C34.90 Malignant neoplasm of unspecified part of unspecified bronchus or lung (principal) ==

== ENCOUNTER → 2024-03-17 | Outpatient (CLI) | payer MEDICARE ==
[~2024-03-17] MED LIST changes: +ONDA-282 PO; -ONDA4TAB6 PO
== END ==
LOC: M RAD 15:21
PROVIDERS: ATTEND Internal Medicine Pulmonary Disease
DX: Z87.891 Personal history of nicotine dependence (principal); J98.4 Other disorders of lung

== ENCOUNTER → 2024-06-16 | Outpatient (CLI) | payer MEDICARE ==
[2024-06-16 13:21] LABS: HEMATOCRIT 36.5 % (42.0-52.0); HEMOGLOBIN 11.9 g/dl (13.5-17.5); MEAN CORPUSCULAR HEMOGLOBIN 28.5 pg (27.0-33.0); MEAN CORPUSCULAR HGB CONC 32.6 g/dl (32.0-36.5); MEAN CORPUSCULAR VOLUME 87.3 fl (80.0-96.0); PLATELET COUNT, AUTOMATED 347 10^3/uL (150-450); RED BLOOD COUNT 4.18 10^6/uL (4.30-6.10); WHITE BLOOD COUNT 12.6 10^3/uL (4.0-10.0)
[2024-06-16 13:34] LABS: APPEARANCE, URINE CLOUDY (CLEAR); BACTERIA, URINE AUTO NEGATIVE (NEGATIVE); BILIRUBIN, URINE AUTO NEGATIVE (NEGATIVE); BLOOD, URINE BLOOD 3+ (NEGATIVE); COLOR, URINE AMBER (YELLOW); GLUCOSE, URINE (UA) AUTO NEGATIVE (NEGATIVE); KETONE, URINE AUTO NEGATIVE (NEGATIVE); LEUKOCYTE ESTERASE, URINE AUTO 3+ (NEGATIVE); MUCUS, URINE SMALL (NEGATIVE); NITRITE, URINE AUTO POSITIVE (NEGATIVE); PROTEIN, URINE AUTO 3+ mg/dL (NEGATIVE); RBC, URINE AUTO TNTC /HPF (0-3); SPECIFIC GRAVITY URINE AUTO 1.013 (1.002-1.035); SQUAMOUS EPITHELIAL CELL UR AU 0 /HPF (0-6); UROBILINOGEN, URINE AUTO 0.2 mg/dL (0.0-2.0); WBC, URINE AUTO 171 /HPF (0-3)
[2024-06-16 13:35] LABS: HEMOGLOBIN A1c 5.4 % (4.0-6.0)
[2024-06-16 13:59] LABS: ALBUMIN 2.9 G/DL (3.2-5.2); BILIRUBIN,TOTAL 0.3 MG/DL (0.3-1.2); CALCIUM LEVEL 8.9 MG/DL (8.3-10.6); CHOLESTEROL RISK RATIO 4.26 (<5); CREATININE FOR GFR 1.09 MG/DL (0.70-1.30); GLOMERULAR FILTRATION RATE 73.9 (>49); HDL CHOLESTEROL 44.5 MG/DL (>40); LDL CHOLESTEROL 129.1 MG/DL (<100); NON-HDL-C 145.5 MG/DL; POTASSIUM SERUM 3.4 MMOL/L (3.5-5.1); TOTAL PROTEIN 6.2 G/DL (5.7-8.2)
[2024-06-16 14:01] LABS: FREE T4 1.09 NG/DL (0.89-1.76); THYROID STIMULATING HORMONE 1.125 uIU/ML (0.55-4.78)
[2024-06-16 14:08] LABS: MAU/CREAT RATIO 740.4 MCG/MG (0.0-30.0)
== END ==
LOC: M LAB 12:29
PROVIDERS: ATTEND Family Medicine
DX: J44.9 Chronic obstructive pulmonary disease, unspecified (principal); E78.00 Pure hypercholesterolemia, unspecified; D50.9 Iron deficiency anemia, unspecified